=== PATIENT | female | born 1975 | race Caucasian/White ===

== ENCOUNTER 2018-09-28 18:42 | Emergency (ER) | payer OTHER ==
[2018-09-28 18:52] VITALS: RESP 18; TEMP 97.8
[2018-09-28] MEDS ORDERED: SODIUM CHLORIDE 0.9% 1,000 ML IV STA (19:48)
[2018-09-28] MEDS ORDERED: MORPHINE SULFATE 4 MG/ML SYRINGE IVP STA (19:49)
[2018-09-28] MEDS ORDERED: ONDANSETRON 4 MG/2 ML VIAL IVP STA (19:49)
[2018-09-28] MEDS ORDERED: diphenhydrAMINE 50 MG/ML 1 ML VIAL IVP STA (19:49)
--- NOTE | 2018-09-28 19:54 | ED ---
Headache HPI - General Chief Complaint: Headache Stated Complaint: headache Time Seen by Provider: 09/28/18 19:48 Source: RN notes reviewed, old records reviewed Mode of arrival: ambulatory Limitations: no limitations - History of Present Illness Initial Comments: This is a 43-year-old female the ER for evaluation. Patient presents with 2 weeks of headache. Headache. [place] with no nausea no vomiting, no neck pain. No fevers. No neurological complaint. No prior history of similar headache. She states last 2 weeks no real modifying factors, headache appears to be intermittent throbbing MD Complaint: headache -: week(s) (2) Onset Description: sudden, gradual Severity: mild Quality: aching, throbbing Worsens With: none Associated Symptoms: other (None) Other Symptoms: other (None) Treatments Prior to Arrival: none - Related Data Home Medications Medication Instructions Recorded Confirmed Bifidobacterium Infantis [Align] 4 mg PO DAILY 09/28/18 09/28/18 Omeprazole 40 mg PO DAILY 09/28/18 09/28/18 Allergies Allergy/AdvReac Type Severity Reaction Status Date / Time alcohol Allergy Unknown Verified 09/28/18 20:17 codeine Allergy Unknown Verified 09/28/18 20:17 latex Allergy Unknown Verified 09/28/18 20:17 Penicillins Allergy Unknown Verified 09/28/18 20:17 Review of Systems ROS Statement: Those systems with pertinent positive or pertinent negative responses have been documented in the HPI. ROS Other: All systems not noted in ROS Statement are negative. Past Medical History Past Medical History: GERD/Reflux History of Any Multi-Drug Resistant Organisms: None Reported Past Surgical History: Cholecystectomy, Hernia Repair Past Psychological History: No Psychological Hx Reported Smoking Status: Never smoker Past Alcohol Use History: None Reported Past Drug Use History: None Reported General Exam Limitations: no limitations General appearance: alert, in no apparent distress Head exam: Present: atraumatic, normocephalic, normal inspection Eye exam: Present: normal appearance, PERRL, EOMI. Absent: scleral icterus, conjunctival injection, periorbital swelling ENT exam: Present: normal exam, mucous membranes moist Neck exam: Present: normal inspection. Absent: tenderness, meningismus, lymphadenopathy Respiratory exam: Present: normal lung sounds bilaterally. Absent: respiratory distress, wheezes, rales, rhonchi, stridor Cardiovascular Exam: Present: regular rate, normal rhythm, normal heart sounds. Absent: systolic murmur, diastolic murmur, rubs, gallop, clicks GI/Abdominal exam: Present: soft, normal bowel sounds. Absent: distended, tenderness, guarding, rebound, rigid Extremities exam: Present: normal inspection, full ROM, normal capillary refill. Absent: tenderness, pedal edema, joint swelling, calf tenderness Back exam: Present: normal inspection Neurological exam: Present: alert, oriented X3, CN II-XII intact Psychiatric exam: Present: normal affect, normal mood Skin exam: Present: warm, dry, intact, normal color. Absent: rash Course Vital Signs 09/28/18 09/28/18 09/28/18 18:48 21:51 22:00 Temperature 97.8 F Pulse Rate 74 76 64 Respiratory 18 18 Rate Blood Pressure 116/75 116/81 O2 Sat by Pulse 98 99 100 Oximetry - Reevaluation(s) Reevaluation #1: 09/28/18 22:31 Medical records reviewed Reevaluation #2: 09/28/18 22:31 Headaches resolved Medical Decision Making - Medical Decision Making 43 female the ER with nonspecific headache. Patient's headache is improved. CT brain is negative for acute disease. Lab values normal. Patient can be discharged home - Lab Data Result diagrams: 09/28/18 20:31 09/28/18 20:31 Lab Results 09/28/18 09/28/18 09/28/18 Range/Units 20:31 20:31 20:31 WBC 9.3 (3.8-10.6) k/uL RBC 4.49 (3.80-5.40) m/uL Hgb 13.3 (11.4-16.0) gm/dL Hct 38.6 (34.0-46.0) % MCV 85.9 (80.0-100.0) fL MCH 29.6 (25.0-35.0) pg MCHC 34.4 (31.0-37.0) g/dL RDW 13.4 (11.5-15.5) % Plt Count 248 (150-450) k/uL Neutrophils % 62 % Lymphocytes % 30 % Monocytes % 5 % Eosinophils % 2 % Basophils % 0 % Neutrophils # 5.7 (1.3-7.7) k/uL Lymphocytes # 2.8 (1.0-4.8) k/uL Monocytes # 0.5 (0-1.0) k/uL Eosinophils # 0.2 (0-0.7) k/uL Basophils # 0.0 (0-0.2) k/uL PT (9.0-12.0) sec INR (<1.2) APTT (22.0-30.0) sec Sodium 138 (137-145) mmol/L Potassium 3.7 (3.5-5.1) mmol/L Chloride 104 (98-107) mmol/L Carbon Dioxide 25 (22-30) mmol/L Anion Gap 9 mmol/L BUN 12 (7-17) mg/dL Creatinine 0.71 (0.52-1.04) mg/dL Est GFR (CKD-EPI)AfAm >90 (>60 ml/min/1.73 sqM) Est GFR (CKD-EPI)NonAf >90 (>60 ml/min/1.73 sqM) Glucose 90 (74-99) mg/dL Plasma Lactic Acid Nixon 1.2 (0.7-2.0) mmol/L Calcium 9.2 (8.4-10.2) mg/dL Phosphorus 3.8 (2.5-4.5) mg/dL Magnesium 2.0 (1.6-2.3) mg/dL Total Bilirubin 0.2 (0.2-1.3) mg/dL AST 28 (14-36) U/L ALT 10 (9-52) U/L Alkaline Phosphatase 48 (38-126) U/L Creatine Kinase 122 (30-135) U/L Troponin I (0.000-0.034) ng/mL Total Protein 7.0 (6.3-8.2) g/dL Albumin 4.3 (3.5-5.0) g/dL 09/28/18 09/28/18 Range/Units 20:31 20:31 WBC (3.8-10.6) k/uL RBC (3.80-5.40) m/uL Hgb (11.4-16.0) gm/dL Hct (34.0-46.0) % MCV (80.0-100.0) fL MCH (25.0-35.0) pg MCHC (31.0-37.0) g/dL RDW (11.5-15.5) % Plt Count (150-450) k/uL Neutrophils % % Lymphocytes % % Monocytes % % Eosinophils % % Basophils % % Neutrophils # (1.3-7.7) k/uL Lymphocytes # (1.0-4.8) k/uL Monocytes # (0-1.0) k/uL Eosinophils # (0-0.7) k/uL Basophils # (0-0.2) k/uL PT 10.3 (9.0-12.0) sec INR 1.0 (<1.2) APTT 24.8 (22.0-30.0) sec Sodium (137-145) mmol/L Potassium (3.5-5.1) mmol/L Chloride (98-107) mmol/L Carbon Dioxide (22-30) mmol/L Anion Gap mmol/L BUN (7-17) mg/dL Creatinine (0.52-1.04) mg/dL Est GFR (CKD-EPI)AfAm (>60 ml/min/1.73 sqM) Est GFR (CKD-EPI)NonAf (>60 ml/min/1.73 sqM) Glucose (74-99) mg/dL Plasma Lactic Acid Nixon (0.7-2.0) mmol/L Calcium (8.4-10.2) mg/dL Phosphorus (2.5-4.5) mg/dL Magnesium (1.6-2.3) mg/dL Total Bilirubin (0.2-1.3) mg/dL AST (14-36) U/L ALT (9-52) U/L Alkaline Phosphatase (38-126) U/L Creatine Kinase (30-135) U/L Troponin I <0.012 (0.000-0.034) ng/mL Total Protein (6.3-8.2) g/dL Albumin (3.5-5.0) g/dL - EKG Data -: EKG Interpreted by Me (EKG shows sinus rhythm rate of 60, TX 180, QRS 70, QTc 446) - Radiology Data Radiology results: report reviewed (CT brain CTA had not negative for acute disease), image reviewed Disposition Clinical Impression: Headache Disposition: HOME SELF-CARE Condition: Good Instructions (If sedation given, give patient instructions): Acute Headache (ED) Is patient prescribed a controlled substance at d/c from ED?: No Referrals: Amanda Lindsay MD [Primary Care Provider] - 1-2 days
[2018-09-28 20:53] LABS: Basophils % (A) 0 %; Eosinophils # (A) 0.2 k/uL (0-0.7); Eosinophils % (A) 2 %; HCT 38.6 % (34.0-46.0); HGB 13.3 gm/dL (11.4-16.0); Lymphocytes # (A) 2.8 k/uL (1.0-4.8); Lymphocytes % (A) 30 %; MCH 29.6 pg (25.0-35.0); MCHC 34.4 g/dL (31.0-37.0); MCV 85.9 fL (80.0-100.0); Mean Platelet Volume 8.6; Monocytes # (A) 0.5 k/uL (0-1.0); Monocytes % (A) 5 %; Neutrophils # (A) 5.7 k/uL (1.3-7.7); Neutrophils % (A) 62 %; Platelet Count 248 k/uL (150-450); RBC 4.49 m/uL (3.80-5.40); RDW 13.4 % (11.5-15.5); WBC 9.3 k/uL (3.8-10.6)
[2018-09-28 20:58] LABS: Partial Thromboplastin Time 24.8 sec (22.0-30.0); Prothrombin Time 10.3 sec (9.0-12.0)
[2018-09-28 21:00] LABS: ALT 10 U/L (9-52); AST 28 U/L (14-36); African American GFR (CKD) >90 (>60 ml/min/1.73 sqM); Albumin 4.3 g/dL (3.5-5.0); Alkaline Phosphatase 48 U/L (38-126); Anion Gap 9 mmol/L; Blood Urea Nitrogen 12 mg/dL (7-17); Calcium 9.2 mg/dL (8.4-10.2); Carbon Dioxide 25 mmol/L (22-30); Chloride 104 mmol/L (98-107); Creatine Kinase 122 U/L (30-135); Glucose 90 mg/dL (74-99); Phosphorus 3.8 mg/dL (2.5-4.5); Potassium 3.7 mmol/L (3.5-5.1); Sodium 138 mmol/L (137-145); Total Bilirubin 0.2 mg/dL (0.2-1.3)
--- NOTE | 2018-09-28 22:09 | CT ---
EXAMINATION: CT brain wo con DATE AND TIME: 09/28/2018 9:47 PM CLINICAL INDICATION: PHH; Pain TECHNIQUE: Standard departmental protocol.; 1088.9; COMPARISON: None. FINDINGS: The calvarium is intact. There is no intracranial hemorrhage. There is no intracranial mass or mass effect. No definite new intra-axial or extra-axial attenuation defect. The paranasal sinuses, middle ear cavities, and mastoid sinus air cells are clear. The orbits are unremarkable. IMPRESSION: NO ACUTE PROCESS.
--- NOTE | 2018-09-28 22:24 | CT ---
EXAMINATION TYPE: CT angio head neck with contrast and with 3-D reconstruction renderings DATE OF EXAM: 09/28/2018 HISTORY: headache and neck pain COMPARISON: CT brain without contrast 09/28/2018 at 9:[address] DLP: 524.3 mGycm. Automated Exposure Control for Dose Reduction was Utilized. TECHNIQUE: CTA scan of the neck is performed with IV Contrast, patient injected with 50cc mL of Isov ue 370, axial images are obtained, coronal and sagittal reformatted images are reviewed. Three-D rusty nstructed images are created on an independent workstation and reviewed. FINDINGS: The bilateral carotid arterial systems are negative for stenosis or aneurysm or dissection. The bilateral vertebral arterial systems are negative for stenosis or aneurysm or dissection. The intracranial anterior and posterior circulation is widely patent and without aneurysm or focal st ricture. The dural venous sinuses are patent. The venous structures throughout the neck are patent. No incidental skeletal or soft tissue findings. No incidental intracranial or spinal findings. IMPRESSION: No significant abnormality is seen.
[2018-09-28 22:27] VITALS: BP 116/81; PULSE 64
[2018-09-28] MEDS ORDERED: KETOROLAC 30 MG/ML 1 ML VIAL IVP STA (22:30)
== END 2018-09-28 22:58 | disposition home or self-care (01) ==
LOC: EC 18:42
DX: R51 Headache (principal); K21.9 Gastro-esophageal reflux disease without esophagitis; Z79.899 Other long term (current) drug therapy; Z88.0 Allergy status to penicillin; Z91.040 Latex allergy status; Z88.5 Allergy status to narcotic agent; Z91.048 Other nonmedicinal substance allergy status; Z53.29 Procedure and treatment not carried out because of patient's decision for other reasons
CPT/HCPCS: 36415; 93005; 80053; 82550; 83605; 83735; 84100; 84484; 85025; 85610; 85730; 70496; 70450; 70498; 99285; 96374; 96375 ×2; 96361; J2270; J2405; J1885; Q9967

== ENCOUNTER → 2019-08-31 | Day surgery (SDC) | payer OTHER ==
[2019-08-29 15:26] VITALS: BMI 35.8
[~2019-08-31] MED LIST: LACTATED RINGERS 1,000 ML IV SCH; MIDAZOLAM 2 MG/2 ML VIAL ONE; PROPOFOL 10 MG/ML 20 ML VIAL IV ONE
[2019-08-31 08:24] VITALS: RESP 16; TEMP 98
--- NOTE | 2019-08-31 08:56 | P.PCN ---
Date of Procedure: 08/31/19 Procedure(s) Performed: BRIEF HISTORY: Patient is a 44-year-old, pleasant, and scheduled for an upper endoscopy as a part of evaluation of long-standing history of GERD. She has been on Protonix 40 mg twice daily and remains symptomatic. She of prior history of hiatal hernia repair approximately 25 years ago and did well for several years. Because of worsening symptoms he scheduled for an upper endoscopy to rule out complicated reflux disease.. PROCEDURE PERFORMED: Esophagogastroduodenoscopy with biopsy. PREOPERATIVE DIAGNOSIS: Long-standing history of GERD. IV sedation per anesthesia. PROCEDURE: After informed consent was obtained, the patient was brought into the endoscopy unit. IV sedation was administered by Anesthesia under continuous monitoring. Initially the Olympus GIF-140 video endoscope was inserted into the mouth. Esophagus intubated without any difficulty. It was gradually advanced into the stomach and duodenum and carefully examined. The bulb and the second part of the duodenum appeared normal. The scope at this time was withdrawn to the stomach, adequately insufflated with air, and upon careful examination, mucosa of the antrum and mild antral gastritis and biopsies were done from this area. The, body, cardia and the fundus appeared normal. Previous fundoplicat ion noted which appears intact. The scope was then withdrawn into the esophagus. The GE junction was located at 36 cm from the incisors. There was a 3 mm tongues of Sam's appearing mucosa just proximal to the GE junction was biopsied. The rest of the esophagus appeared normal. There were no erosions or ulcerations seen and the patient tolerated the procedure well. IMPRESSION: 1. Mild antral gastritis. 2. 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 RECOMMENDATIONS: The findings of this examination were discussed with the patient as well as a family. She was advised to biopsy results. She will continue with Protonix 40 mg twice daily half hour before breakfast and follow antireflux measures. If the biopsy confirms the presence of Sam's esophagus she can have a repeat upper endoscopy in 2-3 years.
[2019-08-31 09:16] VITALS: BP 108/71; PULSE 71
== END ==
LOC: ORWHC2ENDO 07:44
PROVIDERS: ATTEND Internal Medicine Gastroenterology
DX: K29.50 Unspecified chronic gastritis without bleeding (principal); K21.9 Gastro-esophageal reflux disease without esophagitis; K22.70 Barrett's esophagus without dysplasia; J45.909 Unspecified asthma, uncomplicated; Z79.899 Other long term (current) drug therapy; Z98.890 Other specified postprocedural states; Z88.5 Allergy status to narcotic agent; Z88.0 Allergy status to penicillin
CPT/HCPCS: 81025; 88305; 43239; J2250; J2704

== ENCOUNTER 2020-03-31 14:39 | Emergency (ER) | payer OTHER ==
[2020-03-31 14:44] VITALS: PULSE 66; TEMP 97.8
[2020-03-31] MEDS ORDERED: LIDOCAINE 5% PATCH TOPICAL STA (15:03)
[2020-03-31] MEDS ORDERED: KETOROLAC 15 MG/ML 1 ML VIAL IVP STA (15:03)
[2020-03-31] MEDS ORDERED: CYCLOBENZAPRINE 10 MG TAB PO STA (15:04)
--- NOTE | 2020-03-31 15:18 | ED ---
Back Pain HPI - General Chief Complaint: Back Pain/Injury Stated Complaint: back injury Time Seen by Provider: 03/31/20 14:50 Source: patient Limitations: no limitations - History of Present Illness Initial Comments: 44-year-old female presenting to the emergency department with a chief complaint of back pain. Patient reports chronic history of back pain in the lumbosacral region. However, today she was trying to wash her dog in the shower and he pulled her while on the leash. Patient states she was holding a leash with the right arm and the dog "yanked" her. Patient reports most of the pain is located localized to the right latissimus region. Patient reports the pain is exacerbated with any pulling motion of the right arm. Reports the pain is also exacerbated with left and right rotation. Does report taking ibuprofen with no significant improve his symptoms. States the incident occurred about 3 hours prior to arrival. She denies any vertebral tenderness in the cervical or thoracic region. No saddle anesthesia, urinary retention with overflow incontinence or bowel incontinence. No anesthesia or weakness in the lower extremities. - Related Data Home Medications Medication Instructions Recorded Confirmed Pantoprazole [Protonix] 40 cap PO DAILY 08/31/19 03/31/20 Cider Vinegar [Apple Cider Vinegar] 300 mg PO DAILY 03/31/20 03/31/20 Diclofenac Sodium Gel [Voltaren 2 gm TOPICAL DAILY PRN 03/31/20 03/31/20 Gel] Ibuprofen [Motrin Ib] 800 mg PO Q8H PRN 03/31/20 03/31/20 L.acidoph,Paracasei, B.lactis 1 cap PO DAILY 03/31/20 03/31/20 [Probiotic] Previous Rx's Medication Instructions Recorded Cyclobenzaprine [Flexeril] 5 mg PO TID PRN #15 tablet 03/31/20 Allergies Allergy/AdvReac Type Severity Reaction Status Date / Time alcohol Allergy Unknown Verified 03/31/20 16:08 codeine Allergy Unknown Verified 03/31/20 16:08 latex Allergy Unknown Verified 03/31/20 16:08 Penicillins Allergy Unknown Verified 03/31/20 16:08 Review of Systems ROS Statement: Those systems with pertinent positive or pertinent negative responses have been documented in the HPI. ROS Other: All systems not noted in ROS Statement are negative. Past Medical History Past Medical History: Asthma, GERD/Reflux, Skin Disorder Additional Past Medical History / Comment(s): eczema History of Any Multi-Drug Resistant Organisms: None Reported Past Surgical History: Cholecystectomy, Hernia Repair, Uterine Ablation Additional Past Surgical History / Comment(s): D&C Past Anesthesia/Blood Transfusion Reactions: Previous Problems w/ Anesthesia Additional Past Anesthesia/Blood Transfusion Reaction / Comment(s): hard to wake up from anesthesia Past Psychological History: No Psychological Hx Reported Smoking Status: Never smoker Past Alcohol Use History: None Reported Past Drug Use History: None Reported - Past Family History Mother Family Medical History: No Reported History General Exam Limitations: no limitations General appearance: alert, in no apparent distress, obese Head exam: Present: atraumatic, normocephalic, normal inspection Eye exam: Present: normal appearance, PERRL, EOMI Pupils: Present: normal accommodation ENT exam: Present: normal exam, normal oropharynx, mucous membranes moist Neck exam: Present: normal inspection, full ROM. Absent: tenderness Respiratory exam: Present: normal lung sounds bilaterally. Absent: respiratory distress, wheezes, rales Cardiovascular Exam: Present: regular rate, normal rhythm, normal heart sounds GI/Abdominal exam: Present: soft. Absent: distended, tenderness, guarding, rebound Extremities exam: Present: normal inspection, normal capillary refill. Absent: full ROM (Pain in the right latissimus region with pulling motion of the right arm.), pedal edema, joint swelling, calf tenderness Back exam: Present: normal inspection, full ROM, tenderness (Localized tenderness over the right latissimus dorsi muscle. No vertebral tenderness.), muscle spasm. Absent: CVA tenderness (R), CVA tenderness (L), paraspinal tenderness, vertebral tenderness Neurological exam: Present: alert, oriented X3 Psychiatric exam: Present: normal affect, normal mood Skin exam: Present: warm, dry, intact, normal color Course Vital Signs 03/31/20 03/31/20 14:42 16:23 Temperature 97.8 F Pulse Rate 66 66 Respiratory 20 18 Rate Blood Pressure 140/70 110/68 O2 Sat by Pulse 100 100 Oximetry Medical Decision Making - Medical Decision Making 44-year-old female presenting to the emergency department with a chief complaint of back pain. On physical examination, the pain is localized to the right latissimus dorsi muscle is history exacerbated with any pulling motion on the right arm. I suspect this is secondary to strain of the right latissimus dorsi. No suspicion for cauda equina. Patient was given a Lidoderm patch, Toradol and Flexeril. On reevaluation patient reports improvement in symptoms she continues to have muscle spasms in the region. Patient was given 4 mg of Va lium. On reevaluation, she does report significant improvement in symptoms. She will be discharged with Flexeril. Advised to alternate between Tylenol and Motrin for pain control. Advised to apply warm compresses and massage region. Return parameters discussed the patient was understanding and agreeable. Case discussed physician. Disposition Clinical Impression: Back strain, Back pain Disposition: HOME SELF-CARE Condition: Stable Instructions (If sedation given, give patient instructions): Acute Low Back Pain (ED) Additional Instructions: Take prescribed medication as directed. Rest. Alternate between Tylenol and Motrin for pain control. Return to emergency department if symptoms worsen. Prescriptions: Cyclobenzaprine [Flexeril] 5 mg PO TID PRN #15 tablet PRN Reason: Muscle Spasm Is patient prescribed a controlled substance at d/c from ED?: No Referrals: Amanda Lindsay MD [Primary Care Provider] - 1-2 days Time of Disposition: 16:06
[2020-03-31] MEDS ORDERED: DIAZEPAM 5 MG/ML 2 ML INJ IM STA (15:54)
[2020-03-31 16:24] VITALS: BP 110/68; RESP 18
== END 2020-03-31 16:24 | disposition home or self-care (01) ==
LOC: EC 14:39
DX: S39.012A Strain of muscle, fascia and tendon of lower back, initial encounter (principal); K21.9 Gastro-esophageal reflux disease without esophagitis; Z79.899 Other long term (current) drug therapy; Z88.0 Allergy status to penicillin; Z88.5 Allergy status to narcotic agent; Z91.040 Latex allergy status; Z91.048 Other nonmedicinal substance allergy status; Z90.49 Acquired absence of other specified parts of digestive tract; X58.XXXA Exposure to other specified factors, initial encounter
CPT/HCPCS: 99283; 96374; 96372; J3360; J1885

== ENCOUNTER 2020-03-31 22:22 | Emergency (ER) | payer OTHER ==
[2020-03-31] MEDS ORDERED: MORPHINE SULFATE 4 MG/ML SYRINGE IM STA (23:02)
[2020-03-31] MEDS ORDERED: ORPHENADRINE 30 MG/ML 2 ML VIAL IM STA (23:02)
[2020-03-31 23:33] LABS: Appearance,Urine Clear (Clear); Bilirubin,Urine Negative (Negative); Blood,Urine Negative (Negative); Color,Urine Yellow; Glucose,Urine (UA) Negative (Negative); Ketones,Urine Negative (Negative); Leukocyte Esterase,Urine Negative (Negative); Nitrite,Urine Negative (Negative); Protein,Urine Negative (Negative); Specific Gravity,Urine 1.024 (1.001-1.035); Urobilinogen,Urine <2.0 mg/dL (<2.0)
[2020-03-31] MEDS ORDERED: traMADol 50 MG STARTER PACK 3 TAB BTL PO STA (23:33)
[2020-03-31] MEDS ORDERED: KETOROLAC 15 MG/ML 1 ML VIAL IM STA (23:33)
--- NOTE | 2020-04-01 01:08 | ED ---
Back Pain HPI - General Chief Complaint: Back Pain/Injury Stated Complaint: Revisit Back Pain Time Seen by Provider: 03/31/20 22:53 Source: patient Limitations: no limitations - History of Present Illness Initial Comments: 44-year-old female patient presents to the emergency department today for evaluation of right flank pain. Patient states she has been having this pain on and off for the last year. Patient states that she was walking her dog yesterday and he jerked her forward causing the area to spasm. Patient states that pain that significant increases with movement. Denies radiation down her legs. Denies saddle anesthesia or loss of bowel or bladder control. States she has been taking, Motrin at home without relief. She was seen and evaluated in the emergency department earlier today and was given muscle relaxers. States these are not helping. Denies any fever or chills. Denies nausea or vomiting. Denies any hematuria, dysuria, urinary frequency, urinary urgency. States she has no evaluation in the past including x-rays, CT, and kidney evaluation, everything was negative. Patient denies any recent rash, cough, shortness of breath, chest pain, abdominal pain, diarrhea, constipation, numbness, tingling, dizziness, weakness, headache, visual changes, or any other complaints. - Related Data Home Medications Medication Instructions Recorded Confirmed Pantoprazole [Protonix] 40 cap PO DAILY 08/31/19 03/31/20 Cider Vinegar [Apple Cider Vinegar] 300 mg PO DAILY 03/31/20 03/31/20 Diclofenac Sodium Gel [Voltaren 2 gm TOPICAL DAILY PRN 03/31/20 03/31/20 Gel] Ibuprofen [Motrin Ib] 800 mg PO Q8H PRN 03/31/20 03/31/20 L.acidoph,Paracasei, B.lactis 1 cap PO DAILY 03/31/20 03/31/20 [Probiotic] Previous Rx's Medication Instructions Recorded Cyclobenzaprine [Flexeril] 5 mg PO TID PRN #15 tablet 03/31/20 Ketorolac [Toradol] 10 mg PO Q6HR #12 tab 04/01/20 Orphenadrine [Norflex] 100 mg PO Q12H #20 tablet.er 04/01/20 traMADol HCL [Ultram] 50 mg PO Q4HR PRN 3 Days #18 tab 04/01/20 Allergies Allergy/AdvReac Type Severity Reaction Status Date / Time alcohol Allergy Unknown Verified 03/31/20 22:45 codeine Allergy Unknown Verified 03/31/20 22:45 latex Allergy Unknown Verified 03/31/20 22:45 Penicillins Allergy Unknown Verified 03/31/20 22:45 Review of Systems ROS Statement: Those systems with pertinent positive or pertinent negative responses have been documented in the HPI. ROS Other: All systems not noted in ROS Statement are negative. Past Medical History Past Medical History: Asthma, GERD/Reflux, Skin Disorder Additional Past Medical History / Comment(s): eczema History of Any Multi-Drug Resistant Organisms: None Reported Past Surgical History: Cholecystectomy, Hernia Repair, Uterine Ablation Additional Past Surgical History / Comment(s): D&C Past Anesthesia/Blood Transfusion Reactions: Previous Problems w/ Anesthesia Additional Past Anesthesia/Blood Transfusion Reaction / Comment(s): hard to wake up from anesthesia Past Psychological History: No Psychological Hx Reported Smoking Status: Never smoker Past Alcohol Use History: None Reported Past Drug Use History: None Reported - Past Family History Mother Family Medical History: No Reported History General Exam Limitations: no limitations General appearance: alert, in no apparent distress, other (This is a well- developed, well-nourished adult female patient in no acute distress. Vital signs upon presentation are temperature 98.0F, pulse 78, respirations 19, blood pressure 107/72, pulse ox 98% on room air.) Eye exam: Present: normal appearance, PERRL, EOMI. Absent: scleral icterus, conjunctival injection, periorbital swelling ENT exam: Present: normal exam, normal oropharynx, mucous membranes moist Respiratory exam: Present: normal lung sounds bilaterally. Absent: respiratory distress, wheezes, rales, rhonchi, stridor Cardiovascular Exam: Present: regular rate, normal rhythm, normal heart sounds. Absent: systolic murmur, diastolic murmur, rubs, gallop, clicks GI/Abdominal exam: Present: soft, normal bowel sounds. Absent: distended, tenderness, guarding, rebound, rigid Back exam: Present: other (Right flank tenderness over the latissimus dorsi muscle.). Absent: vertebral tenderness Neurological exam: Present: alert, oriented X3, CN II-XII intact Psychiatric exam: Present: normal affect, normal mood Skin exam: Present: warm, dry, intact, normal color. Absent: rash Course Vital Signs 03/31/20 04/01/20 22:40 01:35 Temperature 98 F 97.9 F Pulse Rate 78 82 Respiratory 19 18 Rate Blood Pressure 107/72 112/81 O2 Sat by Pulse 98 99 Oximetry Medical Decision Making - Medical Decision Making 44-year-old female patient presents to the emergency department today for evaluation of right flank pain tenderness over the right latissimus dorsi muscle. No vertebral tenderness. She is neurologically intact with no focal deficits. Urinalysis is negative for evidence for blood or signs of infection. Patient has had this pain on and off for the last year has had previous workup without findings. Patient's pain seems to be mechanical in nature as it does worsen significantly with movement or straining of the area. We did give Ultram, Toradol, and Norflex here. Upon reevaluation patient is resting currently embedded states her symptoms are improved. She'll be discharged home with a prescription for Norflex and Toradol. She is given starter pack for Ultram up her prescription for Ultram. She is instructed to follow-up with her primary care physician for recheck in 1-2 days. Return parameters were discussed in detail. She verbalizes understanding and agrees with this plan. - Lab Data Lab Results 03/31/20 Range/Units 23:22 Urine Color Yellow Urine Appearance Clear (Clear) Urine pH 6.0 (5.0-8.0) Ur Specific [place] 1.024 (1.001-1.035) Urine Protein Negative (Negative) Urine Glucose (UA) Negative (Negative) Urine Ketones Negative (Negative) Urine Blood Negative (Negative) Urine Nitrite Negative (Negative) Urine Bilirubin Negative (Negative) Urine Urobilinogen <2.0 (<2.0) mg/dL Ur Leukocyte Esterase Negative (Negative) Disposition Clinical Impression: Muscle strain, Back pain Disposition: HOME SELF-CARE Condition: Good Instructions (If sedation given, give patient instructions): Muscle Strain (ED), Back Pain (ED) Prescriptions: Orphenadrine [Norflex] 100 mg PO Q12H #20 tablet.er Ketorolac [Toradol] 10 mg PO Q6HR #12 tab traMADol HCL [Ultram] 50 mg PO Q4HR PRN 3 Days #18 tab PRN Reason: Pain Is patient prescribed a controlled substance at d/c from ED?: No Referrals: Amanda Lindsay MD [Primary Care Provider] - 1-2 days Time of Disposition: 01:08
[2020-04-01 01:40] VITALS: BP 112/81; PULSE 82; RESP 18; TEMP 97.9
== END 2020-04-01 01:35 | disposition home or self-care (01) ==
LOC: EC 22:22
DX: S39.012A Strain of muscle, fascia and tendon of lower back, initial encounter (principal); K21.9 Gastro-esophageal reflux disease without esophagitis; Z79.899 Other long term (current) drug therapy; Z88.0 Allergy status to penicillin; Z88.5 Allergy status to narcotic agent; Z91.040 Latex allergy status; Z91.048 Other nonmedicinal substance allergy status; Z90.49 Acquired absence of other specified parts of digestive tract; X50.1XXA Overexertion from prolonged static or awkward postures, initial encounter; Y93.K1 Activity, walking an animal
CPT/HCPCS: 99283 ×3; 96372 ×4; 96374; 81003; J2360; J3360; J1885 ×2

== ENCOUNTER 2021-08-10 23:21 | Emergency (ER) | payer OTHER ==
[2021-08-10 23:33] VITALS: BP 124/84; PULSE 86; RESP 18; TEMP 97.9
[2021-08-11 00:03] LABS: Appearance,Urine Clear (Clear); Bacteria,Urine Occasional /hpf; Bilirubin,Urine Negative (Negative); Blood,Urine Large (Negative); Color,Urine Light Yellow; Glucose,Urine (UA) Negative (Negative); Ketones,Urine Negative (Negative); Leukocyte Esterase,Urine Negative (Negative); Mucus,Urine Rare /hpf; Nitrite,Urine Negative (Negative); PH, Urine 6.5 (5.0-8.0); Protein,Urine Negative (Negative); RBC,Urine 6 /hpf (0-5); Specific Gravity,Urine 1.005 (1.001-1.035); Squamous Epithelial Cell,Urine 1 /hpf (0-4); Urobilinogen,Urine <2.0 mg/dL (<2.0); WBC,Urine 1 /hpf (0-5)
--- NOTE | 2021-08-11 00:06 | XR ---
EXAMINATION TYPE: XR KUB DATE OF EXAM: 08/10/2021 COMPARISON: NONE HISTORY: Abdominal pain TECHNIQUE: 2 views FINDINGS: Bowel gas pattern is normal. No sign of intestinal obstruction or pneumoperitoneum. Fecal p attern is normal. No evidence of a mass. There are no pathologic calcifications over the kidneys. IMPRESSION: Nonacute abdomen.
--- NOTE | 2021-08-11 00:24 | ED ---
Abdominal Pain HPI - General Chief Complaint: Abdominal Pain Stated Complaint: abd pain Time Seen by Provider: 08/11/21 00:17 Source: patient, RN notes reviewed, old records reviewed Mode of arrival: ambulatory Limitations: no limitations - History of Present Illness Initial Comments: This is a 46-year-old female to the emergency department for evaluation she complains of upper area of abdominal pain epigastric dull pain with nausea no vomiting. Patient states she does have history of gallbladder removal and appendicitis for appendix removal. Otherwise no specific prior surgeries. No diarrhea. Mild nausea no vomiting. No travel history or sick contacts. MD Complaint: abdominal pain -: hour(s) Location: epigastric Radiation: epigastric Migration to: epigastric Severity: moderate Severity scale (1-10): 4 Quality: cramping, aching Consistency: intermittent Improves With: nothing Worsens With: nothing Associated Symptoms: nausea Treatments Prior to Arrival: other (none) - Related Data Home Medications Medication Instructions Recorded Confirmed Pantoprazole [Protonix] 40 cap PO DAILY 08/31/19 03/31/20 Cider Vinegar [Apple Cider Vinegar] 300 mg PO DAILY 03/31/20 03/31/20 Diclofenac Sodium Gel [Voltaren 2 gm TOPICAL DAILY PRN 03/31/20 03/31/20 Gel] Ibuprofen [Motrin Ib] 800 mg PO Q8H PRN 03/31/20 03/31/20 L.acidoph,Paracasei, B.lactis 1 cap PO DAILY 03/31/20 03/31/20 [Probiotic] Previous Rx's Medication Instructions Recorded Cyclobenzaprine [Flexeril] 5 mg PO TID PRN #15 tablet 03/31/20 Ketorolac [Toradol] 10 mg PO Q6HR #12 tab 04/01/20 Orphenadrine [Norflex] 100 mg PO Q12H #20 tablet.er 04/01/20 traMADol HCL [Ultram] 50 mg PO Q4HR PRN 3 Days #18 tab 04/01/20 Allergies Allergy/AdvReac Type Severity Reaction Status Date / Time alcohol Allergy Unknown Verified 08/10/21 23:33 codeine Allergy Unknown Verified 08/10/21 23:33 latex Allergy Unknown Verified 08/10/21 23:33 Penicillins Allergy Unknown Verified 08/10/21 23:33 Review of Systems ROS Statement: Those systems with pertinent positive or pertinent negative responses have been documented in the HPI. ROS Other: All systems not noted in ROS Statement are negative. Past Medical History Past Medical History: Asthma, GERD/Reflux, Skin Disorder Additional Past Medical History / Comment(s): eczema History of Any Multi-Drug Resistant Organisms: None Reported Past Surgical History: Cholecystectomy, Hernia Repair, Uterine Ablation Additional Past Surgical History / Comment(s): D&C Past Anesthesia/Blood Transfusion Reactions: Previous Problems w/ Anesthesia Additional Past Anesthesia/Blood Transfusion Reaction / Comment(s): hard to wake up from anesthesia Past Psychological History: No Psychological Hx Reported Smoking Status: Never smoker Past Alcohol Use History: None Reported Past Drug Use History: None Reported - Past Family History Mother Family Medical History: No Reported History General Exam Limitations: no limitations General appearance: alert, in no apparent distress, anxious Head exam: Present: atraumatic, normocephalic, normal inspection Eye exam: Present: normal appearance, PERRL, EOMI. Absent: scleral icterus, conjunctival injection, periorbital swelling ENT exam: Present: normal exam, mucous membranes moist Neck exam: Present: normal inspection. Absent: tenderness, meningismus, lymphadenopathy Respiratory exam: Present: normal lung sounds bilaterally. Absent: respiratory distress, wheezes, rales, rhonchi, stridor Cardiovascular Exam: Present: regular rate, normal rhythm, normal heart sounds. Absent: systolic murmur, diastolic murmur, rubs, gallop, clicks GI/Abdominal exam: Present: soft, tenderness, guarding, normal bowel sounds. Absent: distended, rebound, rigid Extremities exam: Present: normal inspection, full ROM, normal capillary refill. Absent: tenderness, pedal edema, joint swelling, calf tenderness Back exam: Present: normal inspection Neurological exam: Present: alert, oriented X3, CN II-XII intact Psychiatric exam: Present: normal affect, normal mood Skin exam: Present: warm, dry, intact, normal color. Absent: rash Course Vital Signs 08/10/21 23:29 Temperature 97.9 F Pulse Rate 86 Respiratory 18 Rate Blood Pressure 124/84 O2 Sat by Pulse 98 Oximetry - Reevaluation(s) Reevaluation #1: 08/11/21 Medical record is reviewed Reevaluation #2: 08/11/21 Patient informed of results and questions answered 08/11/21 Patient symptoms are improving Reevaluation #3: 08/11/21 Patient feels good for discharge home Medical Decision Making - Medical Decision Making 46 female to the emergency department for evaluation coming in for abdominal pain, mild low-grade pancreatitis nondrinker history of pain go bladder is removed. Patient will continue follow-up on an outpatient basis for GI, computed tomography scan is otherwise negative here in the emergency department, he is controlled and she can be discharged - Lab Data Result diagrams: 08/11/21 00:23 08/11/21 00:23 Lab Results 08/10/21 08/11/21 08/11/21 Range/Units 23:46 00:23 00:23 WBC 8.5 (3.8-10.6) k/uL RBC 4.52 (3.80-5.40) m/uL Hgb 13.1 (11.4-16.0) gm/dL Hct 40.3 (34.0-46.0) % MCV 89.1 (80.0-100.0) fL MCH 29.1 (25.0-35.0) pg MCHC 32.6 (31.0-37.0) g/dL RDW 12.8 (11.5-15.5) % Plt Count 235 (150-450) k/uL MPV 9.2 Neutrophils % 56 % Lymphocytes % 34 % Monocytes % 6 % Eosinophils % 2 % Basophils % 1 % Neutrophils # 4.7 (1.3-7.7) k/uL Lymphocytes # 2.9 (1.0-4.8) k/uL Monocytes # 0.5 (0-1.0) k/uL Eosinophils # 0.2 (0-0.7) k/uL Basophils # 0.1 (0-0.2) k/uL Sodium 137 (137-145) mmol/L Potassium 3.9 (3.5-5.1) mmol/L Chloride 101 (98-107) mmol/L Carbon Dioxide 29 (22-30) mmol/L Anion Gap 7 mmol/L BUN 9 (7-17) mg/dL Creatinine 0.84 (0.52-1.04) mg/dL Est GFR (CKD-EPI)AfAm >90 (>60 ml/min/1.73 sqM) Est GFR (CKD-EPI)NonAf 83 (>60 ml/min/1.73 sqM) Glucose 102 H (74-99) mg/dL Plasma Lactic Acid Nixon (0.7-2.0) mmol/L Calcium 9.1 (8.4-10.2) mg/dL Total Bilirubin 0.4 (0.2-1.3) mg/dL AST 44 H (14-36) U/L ALT 45 H (4-34) U/L Alkaline Phosphatase 50 (38-126) U/L Total Protein 7.4 (6.3-8.2) g/dL Albumin 4.4 (3.5-5.0) g/dL Amylase 81 (30-110) U/L Lipase 430 H (23-300) U/L Urine Color Light Yellow Urine Appearance Clear (Clear) Urine pH 6.5 (5.0-8.0) Ur Specific Umpire 1.005 (1.001-1.035) Urine Protein Negative (Negative) Urine Glucose (UA) Negative (Negative) Urine Ketones Negative (Negative) Urine Blood Large H (Negative) Urine Nitrite Negative (Negative) Urine Bilirubin Negative (Negative) Urine Urobilinogen <2.0 (<2.0) mg/dL Ur Leukocyte Esterase Negative (Negative) Urine RBC 6 H (0-5) /hpf Urine WBC 1 (0-5) /hpf Ur Squamous Epith Cells 1 (0-4) /hpf Urine Bacteria Occasional H (None) /hpf Urine Mucus Rare H (None) /hpf 08/11/21 Range/Units 00:23 WBC (3.8-10.6) k/uL RBC (3.80-5.40) m/uL Hgb (11.4-16.0) gm/dL Hct (34.0-46.0) % MCV (80.0-100.0) fL MCH (25.0-35.0) pg MCHC (31.0-37.0) g/dL RDW (11.5-15.5) % Plt Count (150-450) k/uL MPV Neutrophils % % Lymphocytes % % Monocytes % % Eosinophils % % Basophils % % Neutrophils # (1.3-7.7) k/uL Lymphocytes # (1.0-4.8) k/uL Monocytes # (0-1.0) k/uL Eosinophils # (0-0.7) k/uL Basophils # (0-0.2) k/uL Sodium (137-145) mmol/L Potassium (3.5-5.1) mmol/L Chloride (98-107) mmol/L Carbon Dioxide (22-30) mmol/L Anion Gap mmol/L BUN (7-17) mg/dL Creatinine (0.52-1.04) mg/dL Est GFR (CKD-EPI)AfAm (>60 ml/min/1.73 sqM) Est GFR (CKD-EPI)NonAf (>60 ml/min/1.73 sqM) Glucose (74-99) mg/dL Plasma Lactic Acid Nixon 0.9 (0.7-2.0) mmol/L Calcium (8.4-10.2) mg/dL Total Bilirubin (0.2-1.3) mg/dL AST (14-36) U/L ALT (4-34) U/L Alkaline Phosphatase (38-126) U/L Total Protein (6.3-8.2) g/dL Albumin (3.5-5.0) g/dL Amylase (30-110) U/L Lipase (23-300) U/L Urine Color Urine Appearance (Clear) Urine pH (5.0-8.0) Ur Specific Umpire (1.001-1.035) Urine Protein (Negative) Urine Glucose (UA) (Negative) Urine Ketones (Negative) Urine Blood (Negative) Urine Nitrite (Negative) Urine Bilirubin (Negative) Urine Urobilinogen (<2.0) mg/dL Ur Leukocyte Esterase (Negative) Urine RBC (0-5) /hpf Urine WBC (0-5) /hpf Ur Squamous Epith Cells (0-4) /hpf Urine Bacteria (None) /hpf Urine Mucus (None) /hpf - Radiology Data Radiology results: report reviewed (CT of the abdomen and pelvis is negative for acute disease), image reviewed Disposition Clinical Impression: Abdominal pain, Pancreatitis Disposition: HOME SELF-CARE Condition: Good Instructions (If sedation given, give patient instructions): Pancreatitis (ED), Abdominal Pain (ED) Is patient prescribed a controlled substance at d/c from ED?: No Referrals: Amanda Lindsay MD [Primary Care Provider] - 1-2 days Time of Disposition: 01:30
[2021-08-11 01:03] LABS: ALT 45 U/L (4-34); AST 44 U/L (14-36); African American GFR (CKD) >90 (>60 ml/min/1.73 sqM); Albumin 4.4 g/dL (3.5-5.0); Alkaline Phosphatase 50 U/L (38-126); Amylase 81 U/L (30-110); Anion Gap 7 mmol/L; Blood Urea Nitrogen 9 mg/dL (7-17); Calcium 9.1 mg/dL (8.4-10.2); Carbon Dioxide 29 mmol/L (22-30); Chloride 101 mmol/L (98-107); Glucose 102 mg/dL (74-99); Lipase 430 U/L (23-300); Non-African American GFR(CKD) 83 (>60 ml/min/1.73 sqM); Potassium 3.9 mmol/L (3.5-5.1); Sodium 137 mmol/L (137-145); Total Bilirubin 0.4 mg/dL (0.2-1.3); Total Protein 7.4 g/dL (6.3-8.2)
[2021-08-11 01:12] LABS: Basophils # (A) 0.1 k/uL (0-0.2); Basophils % (A) 1 %; Eosinophils # (A) 0.2 k/uL (0-0.7); Eosinophils % (A) 2 %; HCT 40.3 % (34.0-46.0); HGB 13.1 gm/dL (11.4-16.0); Lymphocytes # (A) 2.9 k/uL (1.0-4.8); Lymphocytes % (A) 34 %; MCH 29.1 pg (25.0-35.0); MCHC 32.6 g/dL (31.0-37.0); MCV 89.1 fL (80.0-100.0); Mean Platelet Volume 9.2; Monocytes # (A) 0.5 k/uL (0-1.0); Monocytes % (A) 6 %; Neutrophils # (A) 4.7 k/uL (1.3-7.7); Neutrophils % (A) 56 %; Platelet Count 235 k/uL (150-450); RBC 4.52 m/uL (3.80-5.40); RDW 12.8 % (11.5-15.5); WBC 8.5 k/uL (3.8-10.6)
--- NOTE | 2021-08-11 01:22 | CT ---
EXAMINATION TYPE: CT abdomen pelvis wo con DATE OF EXAM: 08/11/2021 COMPARISON: None HISTORY: Abd. pain CT DLP: 1117 mGycm Automated exposure control for dose reduction was used. Images obtained from the diaphragm to the floor the pelvis with no contrast. Lung bases are clear. No pleural effusion. Heart size is normal. No pericardial effusion. There are clips from cholecystectomy. Liver is intact. Spleen is intact. There is no evidence of panc reatic mass. Stomach is intact. There are clips at the gastroesophageal junction. There is no adrenal mass. Kidneys of normal size. No hydronephrosis. Ureters are not dilated. There i s no retroperitoneal adenopathy. Bladder distends smoothly. There are a few sigmoid diverticula. No d iverticulitis. The cecum is on the left side of the abdomen. There is short appendix appears normal. No mesenteric edema. No ascites or free air. No bowel obstruction. The lumbar vertebrae have normal alignment. No compression fracture. Posterior elements are intact. H ip joints are intact. Sacroiliac joints appear normal. Uterus is retroverted. No pelvic mass. IMPRESSION: Negative CT scan abdomen and pelvis. Normal appendix. Previous surgery.
[2021-08-11] MEDS ORDERED: ONDANSETRON 4 MG ODT STARTER PACK 2 TAB BTL PO STA (01:31)
[2021-08-11] MEDS ORDERED: traMADol 50 MG STARTER PACK 3 TAB BTL PO STA (01:32)
== END 2021-08-11 01:42 | disposition home or self-care (01) ==
LOC: EC 23:21
DX: K85.90 Acute pancreatitis without necrosis or infection, unspecified (principal); K21.9 Gastro-esophageal reflux disease without esophagitis; J45.909 Unspecified asthma, uncomplicated; Z79.899 Other long term (current) drug therapy; Z88.0 Allergy status to penicillin; Z90.49 Acquired absence of other specified parts of digestive tract
CPT/HCPCS: 36415; 80053; 82150; 83605; 83690; 85025; 81001; 74018; 74176; 99284; S0119

== ENCOUNTER 2021-11-27 08:48 | Emergency (ER) | payer OTHER ==
[2021-11-27 08:53] VITALS: RESP 16; TEMP 97.8
[2021-11-27] MEDS ORDERED: DIPH,PERTUS(ACELL)TETVAC-LF 0.5 ML VIAL IM ONE (09:05)
--- NOTE | 2021-11-27 09:06 | ED ---
Fall HPI - General Chief Complaint: Fall Stated Complaint: fell down 12 steps, head injury Time Seen by Provider: 11/27/21 08:56 Source: patient, RN notes reviewed Mode of arrival: ambulatory Limitations: no limitations - History of Present Illness Initial Comments: 46-year-old female presents emergency Department with chief complaint slip and fall. Patient states she was coming down her stairs in which she states her 12 stairs has green LG on the step read she states she slipped falling striking her head on a brick. Patient does have a noted laceration the left side of her head, mild bleeding. She does complain of mild discomfort no loss conscious. No blurred vision. Patient does have some soreness to her left side has no severe complaints of left arm or left leg pain. Patient is able to ambulate. - Related Data Home Medications Medication Instructions Recorded Confirmed Pantoprazole [Protonix] 40 cap PO DAILY 08/31/19 03/31/20 Cider Vinegar [Apple Cider Vinegar] 300 mg PO DAILY 03/31/20 03/31/20 Diclofenac Sodium Gel [Voltaren 2 gm TOPICAL DAILY PRN 03/31/20 03/31/20 Gel] Ibuprofen [Motrin Ib] 800 mg PO Q8H PRN 03/31/20 03/31/20 L.acidoph,Paracasei, B.lactis 1 cap PO DAILY 03/31/20 03/31/20 [Probiotic] Previous Rx's Medication Instructions Recorded Cyclobenzaprine [Flexeril] 5 mg PO TID PRN #15 tablet 03/31/20 Ketorolac [Toradol] 10 mg PO Q6HR #12 tab 04/01/20 Orphenadrine [Norflex] 100 mg PO Q12H #20 tablet.er 04/01/20 traMADol HCL [Ultram] 50 mg PO Q4HR PRN 3 Days #18 tab 04/01/20 Allergies Allergy/AdvReac Type Severity Reaction Status Date / Time alcohol Allergy Unknown Verified 11/27/21 08:53 codeine Allergy Unknown Verified 11/27/21 08:53 latex Allergy Unknown Verified 11/27/21 08:53 Penicillins Allergy Unknown Verified 11/27/21 08:53 Review of Systems ROS Statement: Those systems with pertinent positive or pertinent negative responses have been documented in the HPI. ROS Other: All systems not noted in ROS Statement are negative. Past Medical History Past Medical History: Asthma, GERD/Reflux, Skin Disorder Additional Past Medical History / Comment(s): eczema History of Any Multi-Drug Resistant Organisms: None Reported Past Surgical History: Cholecystectomy, Hernia Repair, Uterine Ablation Additional Past Surgical History / Comment(s): D&C Past Anesthesia/Blood Transfusion Reactions: Previous Problems w/ Anesthesia Additional Past Anesthesia/Blood Transfusion Reaction / Comment(s): hard to wake up from anesthesia Past Psychological History: No Psychological Hx Reported Smoking Status: Never smoker Past Alcohol Use History: None Reported Past Drug Use History: None Reported - Past Family History Mother Family Medical History: No Reported History General Exam Limitations: no limitations General appearance: alert, in no apparent distress Head exam: Present: atraumatic, normocephalic. Absent: normal inspection (Small abrasion, puncture wound on the left parietal region) Eye exam: Present: normal appearance, PERRL, EOMI. Absent: scleral icterus, conjunctival injection, periorbital swelling ENT exam: Present: normal exam, normal oropharynx, mucous membranes moist Neck exam: Present: normal inspection, full ROM. Absent: tenderness, meningismus, lymphadenopathy Respiratory exam: Present: normal lung sounds bilaterally. Absent: respiratory distress, wheezes, rales, rhonchi, stridor Cardiovascular Exam: Present: regular rate, normal rhythm, normal heart sounds. Absent: systolic murmur, diastolic murmur, rubs, gallop, clicks Extremities exam: Present: normal inspection, full ROM, normal capillary refill. Absent: tenderness, pedal edema, joint swelling, calf tenderness Neurological exam: Present: alert, oriented X3, CN II-XII intact, reflexes normal. Absent: motor sensory deficit Course Vital Signs 11/27/21 08:50 Temperature 97.8 F Pulse Rate 90 Respiratory 16 Rate Blood Pressure 135/83 O2 Sat by Pulse 96 Oximetry Medical Decision Making - Medical Decision Making CT of the brain, C-spine unremarkable. Patient has superficial abrasion, laceration of the scalp with no need for closure. Tetanus is updated. Patient will be discharged in stable condition return parameters were discussed. Disposition Clinical Impression: Fall, Scalp laceration, Head contusion Disposition: HOME SELF-CARE Condition: Stable Instructions (If sedation given, give patient instructions): Head Injury (ED) Additional Instructions: Please return to the Emergency Department if symptoms worsen or any other chinyere rns. Is patient prescribed a controlled substance at d/c from ED?: No Referrals: Amanda Lindsay MD [Primary Care Provider] - 1-2 days Time of Disposition: 09:53
--- NOTE | 2021-11-27 09:51 | CT ---
EXAMINATION TYPE: CT brain wilbertine wo con DATE OF EXAM: 11/27/2021 COMPARISON: 09/28/2018 HISTORY: Fell down 12 steps, laceration top of head and ear pain CT DLP: 1643 mGycm, Automated exposure control for dose reduction was used. CONTRAST: None CT of the brain is performed utilizing 3 mm thick sections through the posterior fossa and 3 mm thick sections through the remaining calvarium. Study is performed within 24 hours of arrival to the hospital. No abnormal hyperdensity is present to suggest an acute intracranial hemorrhage. No mass lesion is evident. No acute infarcts are evident. Ventricles and sulci are appropriate for the patient age. No acute fractures evident. Paranasal sinuses and mastoid air cells within the [id number] are clear. IMPRESSIONS: 1. No acute intracranial process. CT cervical spine. COMPARISON: None CT of the cervical spine is performed in the axial plane at 2 mm thick sections. Reconstructed image s in the coronal, and sagittal plane are reviewed on the computer. No acute fractures are evident. Vertebral body alignment is normal. Disc heights are preserved. Vertebral body heights are preserved. No spinal canal stenosis is evident. No neural foraminal stenosis is evident. IMPRESSIONS: 1. No acute osseous abnormality cervical spine.
[2021-11-27 10:06] VITALS: BP 142/85; PULSE 85
== END 2021-11-27 10:06 | disposition home or self-care (01) ==
LOC: EC 08:48
DX: S00.93XA Contusion of unspecified part of head, initial encounter (principal); J45.909 Unspecified asthma, uncomplicated; K21.9 Gastro-esophageal reflux disease without esophagitis; Z79.83 Long term (current) use of bisphosphonates; W10.8XXA Fall (on) (from) other stairs and steps, initial encounter; Z88.5 Allergy status to narcotic agent; Z91.048 Other nonmedicinal substance allergy status; Z88.0 Allergy status to penicillin; Z23 Encounter for immunization
CPT/HCPCS: 70450; 72125; 90471; 90715; 99284

== ENCOUNTER 2021-11-28 22:11 | Emergency (ER) | payer OTHER ==
[2021-11-28 23:28] VITALS: BP 125/65; PULSE 76; RESP 20; TEMP 96.8
--- NOTE | 2021-11-29 00:41 | ED ---
Head Injury HPI - General Chief complaint: Head Injury Stated complaint: Fall, Nausea Source: patient Mode of arrival: ambulatory Limitations: no limitations - History of Present Illness Initial comments: Patient is a 46-year-old female presenting with chief complaint of headache. Patient fell down the stairs yesterday, she was seen in our ER, CT showed no acute intracranial process or fracture of the cervical spine. Patient is not on any blood thinners and did not lose consciousness at the time of the event. Patient states that she has been continuing to experience a headache since this visit today as well as some nausea. Patient denies any vision or hearing changes, vomiting, dizziness, neck pain or stiffness, chest pain, shortness of breath, numbness, tingling, weakness, seizure. - Related Data Home Medications Medication Instructions Recorded Confirmed Pantoprazole [Protonix] 40 cap PO DAILY 08/31/19 03/31/20 Cider Vinegar [Apple Cider Vinegar] 300 mg PO DAILY 03/31/20 03/31/20 Diclofenac Sodium Gel [Voltaren 2 gm TOPICAL DAILY PRN 03/31/20 03/31/20 Gel] Ibuprofen [Motrin Ib] 800 mg PO Q8H PRN 03/31/20 03/31/20 L.acidoph,Paracasei, B.lactis 1 cap PO DAILY 03/31/20 03/31/20 [Probiotic] Previous Rx's Medication Instructions Recorded Cyclobenzaprine [Flexeril] 5 mg PO TID PRN #15 tablet 03/31/20 Ketorolac [Toradol] 10 mg PO Q6HR #12 tab 04/01/20 Orphenadrine [Norflex] 100 mg PO Q12H #20 tablet.er 04/01/20 traMADol HCL [Ultram] 50 mg PO Q4HR PRN 3 Days #18 tab 04/01/20 Allergies/Adverse reactions: Allergies Allergy/AdvReac Type Severity Reaction Status Date / Time alcohol Allergy Unknown Verified 11/28/21 23:29 codeine Allergy Unknown Verified 11/28/21 23:29 latex Allergy Unknown Verified 11/28/21 23:29 Penicillins Allergy Unknown Verified 11/28/21 23:29 Review of Systems ROS Statement: Those systems with pertinent positive or pertinent negative responses have been documented in the HPI. ROS Other: All systems not noted in ROS Statement are negative. Past Medical History Past Medical History: Asthma, GERD/Reflux, Skin Disorder Additional Past Medical History / Comment(s): eczema History of Any Multi-Drug Resistant Organisms: None Reported Past Surgical History: Cholecystectomy, Hernia Repair, Uterine Ablation Additional Past Surgical History / Comment(s): D&C Past Anesthesia/Blood Transfusion Reactions: Previous Problems w/ Anesthesia Additional Past Anesthesia/Blood Transfusion Reaction / Comment(s): hard to wake up from anesthesia Past Psychological History: No Psychological Hx Reported Smoking Status: Never smoker Past Alcohol Use History: None Reported Past Drug Use History: None Reported - Past Family History Mother Family Medical History: No Reported History General Exam Limitations: no limitations General appearance: alert, in no apparent distress Head exam: Present: atraumatic, normocephalic, normal inspection Eye exam: Present: normal appearance, PERRL, EOMI. Absent: scleral icterus, conjunctival injection, periorbital swelling Pupils: Present: normal accommodation Neck exam: Present: normal inspection, full ROM. Absent: tenderness Respiratory exam: Present: normal lung sounds bilaterally. Absent: respiratory distress, wheezes, rales, rhonchi, stridor Cardiovascular Exam: Present: regular rate, normal rhythm, normal heart sounds. Absent: systolic murmur, diastolic murmur, rubs, gallop, clicks Neurological exam: Present: alert, oriented X3, CN II-XII intact Expanded Patient oriented to: Present: person, place, time Speech: Present: fluid speech Cranial nerves: EOM's Intact: Normal, Facial Sensation: Normal Sensory exam: Upper Extremity Light Touch: Normal, Lower Extremity Light Touch: Normal Motor strength exam: RUE: 5, LUE: 5, RLE: 5, LLE: 5 Eye Response: (4) open spontaneously Motor Response: (6) obeys commands Verbal Response: (5) oriented [place] Total: 15 Psychiatric exam: Present: normal affect, normal mood Skin exam: Present: warm, dry, intact, normal color. Absent: rash Course Vital Signs 11/28/21 23:25 Temperature 96.8 F L Pulse Rate 76 Respiratory 20 Rate Blood Pressure 125/65 O2 Sat by Pulse 97 Oximetry Medical Decision Making - Medical Decision Making Patient is a 46-year-old female presenting with chief complaint of headache and nausea. Patient fell down the stairs yesterday resulting in head injury, CT in our ER yesterday showed no acute process. Patient is continuing to feel a headache today and felt some nausea. I evaluated the patient in the triage ocampo. On examination there are no focal neurological deficits, patient has full strength and sensation of the extremities, extraocular motions are intact, PERRLA, neck has full range of motion. Patient's symptoms appear consistent with concussion. After discussing these findings with my attending and the appropriate plan for discharge with outpatient follow-up, patient had left AGAINST MEDICAL ADVICE. Patient should follow-up with your PCP and report back to ER with any new or worsening symptoms. Disposition Clinical Impression: Head injury Disposition: Left Against Medical Advice Condition: Fair Instructions (If sedation given, give patient instructions): Concussion (ED), Post Concussion Syndrome (ED), Head Injury (ED) Additional Instructions: Follow-up with PCP. Report back to ER if any new or worsening symptoms. Is patient prescribed a controlled substance at d/c from ED?: No Referrals: Amanda Lindsay MD [Primary Care Provider] - 1-2 days Time of Disposition: 00:41
== END 2021-11-29 00:48 | disposition left against medical advice (07) ==
LOC: EC 22:11
DX: S09.90XA Unspecified injury of head, initial encounter (principal); J45.909 Unspecified asthma, uncomplicated; K21.9 Gastro-esophageal reflux disease without esophagitis; Z91.048 Other nonmedicinal substance allergy status; Z88.5 Allergy status to narcotic agent; Z91.040 Latex allergy status; Z88.0 Allergy status to penicillin; Z79.899 Other long term (current) drug therapy; W10.9XXA Fall (on) (from) unspecified stairs and steps, initial encounter; Z53.29 Procedure and treatment not carried out because of patient's decision for other reasons
CPT/HCPCS: 99283

== ENCOUNTER → 2021-12-16 | Outpatient (CLI) | payer OTHER ==
--- NOTE | 2021-12-16 10:56 | US ---
EXAMINATION TYPE: US venous doppler duplex UE LT DATE OF EXAM: 12/16/2021 COMPARISON: NONE CLINICAL HISTORY: R22.32 SWELLING LT FOREARM,Z91.81 POST FALL. Patient states she fell x 3 weeks ago. No redness. No swelling. No hx DVT. SIDE PERFORMED: Left Grayscale, color doppler, spectral doppler imaging performed of the deep veins of the left upper extr emity. The left internal jugular, subclavian, axillary, brachial, basilic, cephalic, radial, and ulna r veins demonstrate normal flow, compressibility and vascular waveforms. Left Arm: Negative for DVT IMPRESSION: No ultrasound evidence for deep venous thrombosis of the left upper extremity.
== END | disposition home or self-care (01) ==
LOC: RADUSWWP 10:10
PROVIDERS: ATTEND Family Medicine
DX: R22.32 Localized swelling, mass and lump, left upper limb (principal); Z91.81 History of falling; Z83.2 Family history of diseases of the blood and blood-forming organs and certain disorders involving the immune mechanism

== ENCOUNTER 2022-07-29 20:23 | Emergency (ER) | payer OTHER ==
[2022-07-29 20:44] VITALS: BP 118/61; PULSE 86; RESP 16; TEMP 97.9
[2022-07-29 21:19] LABS: Basophils % (A) 0 %; Eosinophils # (A) 0.1 k/uL (0-0.7); Eosinophils % (A) 2 %; HCT 38.2 % (34.0-46.0); Lymphocytes % (A) 32 %; MCH 29.4 pg (25.0-35.0); MCHC 34.1 g/dL (31.0-37.0); MCV 86.2 fL (80.0-100.0); Mean Platelet Volume 9.8; Monocytes # (A) 0.5 k/uL (0-1.0); Monocytes % (A) 5 %; Neutrophils # (A) 5.5 k/uL (1.3-7.7); Neutrophils % (A) 59 %; Platelet Count 244 k/uL (150-450); RBC 4.43 m/uL (3.80-5.40); RDW 13.4 % (11.5-15.5); WBC 9.4 k/uL (3.8-10.6)
[2022-07-29 21:40] LABS: Albumin 4.5 g/dL (3.5-5.0); Calcium 9.4 mg/dL (8.4-10.2); Potassium 3.7 mmol/L (3.5-5.1); Total Bilirubin 0.3 mg/dL (0.2-1.3); Total Protein 7.6 g/dL (6.3-8.2)
--- NOTE | 2022-07-29 21:42 | XR ---
EXAMINATION TYPE: XR KUB DATE OF EXAM: 07/29/2022 COMPARISON: None INDICATION: Abdomen pain TECHNIQUE: Single view abdomen frontal upright view FINDINGS: There is a normal bowel gas pattern. Periventricular branches within the descending colon. No suspici ous air-fluid levels or differential air-fluid levels are present. No free air is evident. Psoas margins are normal. No organomegaly is present. IMPRESSION: 1. Unremarkable Abdomen
--- NOTE | 2022-07-29 22:01 | ED ---
Abdominal Pain HPI - General Chief Complaint: Abdominal Pain Stated Complaint: CONSTIPATED-ABD PAIN Time Seen by Provider: 07/29/22 21:49 Source: patient Mode of arrival: ambulatory Limitations: no limitations - History of Present Illness Initial Comments: This is a 39-year-old female presenting with chief complaint of lower abdominal pain. Patient has history of constipation and she notes increased pressure to the rectum. It has been several days since her last bowel movement. No vomiting. No fevers or chills. No dysuria or hematuria. No chest pain or difficulty breathing. - Related Data Home Medications Medication Instructions Recorded Confirmed Pantoprazole [Protonix] 40 cap PO DAILY 08/31/19 03/31/20 Cider Vinegar [Apple Cider Vinegar] 300 mg PO DAILY 03/31/20 03/31/20 Diclofenac Sodium Gel [Voltaren 2 gm TOPICAL DAILY PRN 03/31/20 03/31/20 Gel] Ibuprofen [Motrin Ib] 800 mg PO Q8H PRN 03/31/20 03/31/20 L.acidoph,Paracasei, B.lactis 1 cap PO DAILY 03/31/20 03/31/20 [Probiotic] Previous Rx's Medication Instructions Recorded Cyclobenzaprine [Flexeril] 5 mg PO TID PRN #15 tablet 03/31/20 Ketorolac [Toradol] 10 mg PO Q6HR #12 tab 04/01/20 Orphenadrine [Norflex] 100 mg PO Q12H #20 tablet.er 04/01/20 traMADol HCL [Ultram] 50 mg PO Q4HR PRN 3 Days #18 tab 04/01/20 Allergies Allergy/AdvReac Type Severity Reaction Status Date / Time alcohol Allergy Unknown Verified 11/28/21 23:29 codeine Allergy Unknown Verified 11/28/21 23:29 latex Allergy Unknown Verified 11/28/21 23:29 Penicillins Allergy Unknown Verified 11/28/21 23:29 Review of Systems ROS Statement: Those systems with pertinent positive or pertinent negative responses have been documented in the HPI. ROS Other: All systems not noted in ROS Statement are negative. Past Medical History Past Medical History: Asthma, GERD/Reflux, Skin Disorder Additional Past Medical History / Comment(s): eczema History of Any Multi-Drug Resistant Organisms: None Reported Past Surgical History: Cholecystectomy, Hernia Repair, Uterine Ablation Additional Past Surgical History / Comment(s): D&C Past Anesthesia/Blood Transfusion Reactions: Previous Problems w/ Anesthesia Additional Past Anesthesia/Blood Transfusion Reaction / Comment(s): hard to wake up from anesthesia Past Psychological History: No Psychological Hx Reported Smoking Status: Never smoker Past Alcohol Use History: None Reported Past Drug Use History: None Reported - Past Family History Mother Family Medical History: No Reported History General Exam Limitations: no limitations General appearance: alert, in no apparent distress Head exam: Present: atraumatic, normocephalic, normal inspection Eye exam: Present: normal appearance, EOMI. Absent: scleral icterus, periorbital swelling Neck exam: Present: normal inspection, full ROM Respiratory exam: Present: normal lung sounds bilaterally. Absent: respiratory distress, wheezes, rales, rhonchi, stridor Cardiovascular Exam: Present: regular rate, normal rhythm, normal heart sounds. Absent: systolic murmur, diastolic murmur, rubs, gallop, clicks GI/Abdominal exam: Present: soft. Absent: distended, tenderness, guarding, rebound, rigid Neurological exam: Present: alert, oriented X3, CN II-XII intact Psychiatric exam: Present: normal affect, normal mood Skin exam: Present: warm, dry, intact, normal color. Absent: rash Course Vital Signs 07/29/22 20:41 Temperature 97.9 F Pulse Rate 86 Respiratory 16 Rate Blood Pressure 118/61 O2 Sat by Pulse 96 Oximetry Medical Decision Making - Medical Decision Making Was pt. sent in by a medical professional or institution (, PA, CHIEF II DISPATCHER, urgent care, hospital, or senior living...) When possible be specific @ -No Did you speak to anyone other than the patient for history (EMS, parent, family, police, friend...)? What history was obtained from this source @ -No Did you review nursing and triage notes (agree or disagree)? Why? @ -I reviewed and agree with nursing and triage notes Were old charts reviewed (outside hosp., previous admission, EMS record, old EKG, old radiological studies, urgent care reports/EKG's, senior living records)? Report findings @ -No old charts were reviewed Differential Diagnosis (chest pain, altered mental status, abdominal pain women, abdominal pain men, vaginal bleeding, weakness, fever, dyspnea, syncope, headache, dizziness, GI bleed, back pain, seizure, CVA, palpatations, mental health, musculoskeletal)? @ -MDM Differential Abdominal Pain Women: Appendicitis, Cholecystitis, diverticulosis, ischemic bowel, pancreatitis, hepatitis, UTI, gastroenteritis, AAA, incarcerated hernia, bowel obstruction, constipation, inflammatory bowel, hepatitis, peptic ulcer disease, splenic infarction, perforated viscus, vulvitis, ovarian torsion, PID, kidney stone, placenta abruption... This is not meant to be an all-inclusive list EKG interpreted by me (3pts min.). @ -As above X-rays interpreted by me (1pt min.). @ -KUB x-ray shows nonacute abdomen. On my independent interpretation there appears to be some degree of constipation. CT interpreted by me (1pt min.). @ -None done U/S interpreted by me (1pt. min.). @ -None done What testing was considered but not performed or refused? (CT, X-rays, U/S, labs)? Why? @ -None What meds were considered but not given or refused? Why? @ -None Did you discuss the management of the patient with other professionals (professionals i.e. , PA, CHIEF II DISPATCHER, lab, RT, psych nurse, social media campaign manager, post partum nurse, teacher, administrative officer, case finisher)? Give summary @ -No Was smoking cessation discussed for >3mins.? @ -No Was critical care preformed (if so, how long)? @ -No Were there social determinants of health that impacted care today? How? (Homelessness, low income, unemployed, alcoholism, drug addiction, transportation, low edu. Level, literacy, decrease access to med. care, usp, rehab)? @ -No Was there de-escalation of care discussed even if they declined (Discuss DNR or withdrawal of care, Hospice)? DNR status @ -No What co-morbidities impacted this encounter? (DM, HTN, Smoking, COPD, CAD, Cancer, CVA, ARF, Chemo, Hep., AIDS, mental health diagnosis, sleep apnea, morbid obesity)? @ -None Was patient admitted / discharged? Hospital course, mention meds given and route, prescriptions, significant lab abnormalities, going to OR and other pertinent info. @ -Patient is a 39-year-old female presenting with chief complaint of lower abdominal pain and pressure to the rectum. She has history of constipation and states that this feels similar to previous episodes. Lab work shows no l eukocytosis or anemia. CMP is essentially unremarkable. KUB x-ray shows nonacute abdomen. Patient is educated on these findings. I offered the patient on a monitor, patient states that she would rather be discharged home at this time. I instructed the patient to take xuaa-wio-rlluibh magnesium citrate to help resolve her constipation. She is agreeable with this plan. Follow-up with PCP. Report back to ER with any new or worsening symptoms. Discussed return parameters and answered all questions. Patient conveyed verbal understanding and agreed to the plan. I discussed this case in detail with my attending Dr. Weber Undiagnosed new problem with uncertain prognosis? @ -No Drug Therapy requiring intensive monitoring for toxicity (Heparin, Nitro, Insulin, Cardizem)? @ -No Were any procedures done? @ -No Diagnosis/symptom? @ -Constipation Acute, or Chronic, or Acute on Chronic? @ -Acute Uncomplicated (without systemic symptoms) or Complicated (systemic symptoms)? @ -Uncomplicated Side effects of treatment? @ -No Exacerbation, Progression, or Severe Exacerbation? @ -No Poses a threat to life or bodily function? How? (Chest pain, USA, OR, pneumonia, PE, COPD, DKA, ARF, appy, cholecystitis, CVA, Diverticulitis, Homicidal, Suicidal, threat to staff... and all critical care pts) @ -No - Lab Data Result diagrams: 07/29/22 20:56 07/29/22 20:56 Lab Results 07/29/22 07/29/22 Range/Units 20:56 20:56 WBC 9.4 (3.8-10.6) k/uL RBC 4.43 (3.80-5.40) m/uL Hgb 13.0 (11.4-16.0) gm/dL Hct 38.2 (34.0-46.0) % MCV 86.2 (80.0-100.0) fL MCH 29.4 (25.0-35.0) pg MCHC 34.1 (31.0-37.0) g/dL RDW 13.4 (11.5-15.5) % Plt Count 244 (150-450) k/uL MPV 9.8 Neutrophils % 59 % Lymphocytes % 32 % Monocytes % 5 % Eosinophils % 2 % Basophils % 0 % Neutrophils # 5.5 (1.3-7.7) k/uL Lymphocytes # 3.0 (1.0-4.8) k/uL Monocytes # 0.5 (0-1.0) k/uL Eosinophils # 0.1 (0-0.7) k/uL Basophils # 0.0 (0-0.2) k/uL Sodium 138 (137-145) mmol/L Potassium 3.7 (3.5-5.1) mmol/L Chloride 100 (98-107) mmol/L Carbon Dioxide 28 (22-30) mmol/L Anion Gap 10 mmol/L BUN 10 (7-17) mg/dL Creatinine 0.95 (0.52-1.04) mg/dL Est GFR (CKD-EPI)AfAm 82 (>60 ml/min/1.73 sqM) Est GFR (CKD-EPI)NonAf 72 (>60 ml/min/1.73 sqM) Glucose 96 (74-99) mg/dL Calcium 9.4 (8.4-10.2) mg/dL Total Bilirubin 0.3 (0.2-1.3) mg/dL AST 41 H (14-36) U/L ALT 30 (4-34) U/L Alkaline Phosphatase 59 (38-126) U/L Total Protein 7.6 (6.3-8.2) g/dL Albumin 4.5 (3.5-5.0) g/dL Amylase 65 (30-110) U/L Lipase 306 H (23-300) U/L Disposition Clinical Impression: Constipation Disposition: HOME SELF-CARE Condition: Good Instructions (If sedation given, give patient instructions): Constipation (ED), High Fiber Diet (ED) Additional Instructions: Follow-up with PCP. Report back to ER with any worsening symptoms. Take vfuo-avv-trxdads laxative liquid magnesium citrate per package instructions. Is patient prescribed a controlled substance at d/c from ED?: No Referrals: Amanda Lindsay MD [Primary Care Provider] - 1-2 days Time of Disposition: 22:01
== END 2022-07-29 22:16 | disposition home or self-care (01) ==
LOC: EC 20:23
DX: K59.00 Constipation, unspecified (principal); J45.909 Unspecified asthma, uncomplicated; K21.9 Gastro-esophageal reflux disease without esophagitis; Z79.899 Other long term (current) drug therapy; Z88.0 Allergy status to penicillin; Z91.040 Latex allergy status; Z88.8 Allergy status to other drugs, medicaments and biological substances
CPT/HCPCS: 36415; 74018; 80053; 82150; 83690; 85025; 99284

== ENCOUNTER 2022-09-26 06:43 | Day surgery (SDC) | payer OTHER ==
[2022-09-23 14:38] VITALS: BMI 39.4
[~2022-09-26 06:43] MED LIST changes: +LIDOCAINE 1% (10MG/ML) FOR IV START INTRADERMA PRN; -MIDAZOLAM 2 MG/2 ML VIAL ONE; -PROPOFOL 10 MG/ML 20 ML VIAL IV ONE
[2022-09-26 06:55] VITALS: TEMP 97.2
[2022-09-26] MEDS ORDERED: PROPOFOL 10 MG/ML 20 ML VIAL IV ONE (08:41)
[2022-09-26] MEDS ORDERED: LIDOCAINE 2% INJ 20 MG/ML (2 ML VIAL) ONE (08:41)
--- NOTE | 2022-09-26 08:59 | P.PCN ---
Date of Procedure: 09/26/22 Procedure(s) Performed: Brief history: Patient is a pleasant 47-year-old white female scheduled for an elective upper endoscopy as well as colonoscopy as a part of evaluation of reflux and history of GERD and screening for colon cancer. Procedure performed: Esophagogastroduodenoscopy with biopsy Colonoscopy Preoperative diagnosis: GERD Screening for colon cancer Anesthesia: MAC Procedure: After informed consent was obtained from the patient was brought into the endoscopy unit and IV sedation was administered by anesthesia under continuous monitoring. Initially upper endoscopy was done. The Olympus GF 160 video endoscope was inserted inserted into the mouth and esophagus intubated without any difficulty and was gradually advanced into the stomach and duodenum and carefully examined. The bulb and second part of the duodenum appeared normal. The scope was then withdrawn into the stomach adequately insufflated with air and upon careful examination the antrum had minimal erythema in the prepyloric area which was biopsied. Mucosa of the body, cardia and fundus appeared normal. The scope was then withdrawn into the esophagus. The GE junction was located at 38 cm to the incisors. It appeared regular with no erythema erosions or ulcerations. Rest of the esophagus appeared normal. Patient tolerated the procedure well. At this time the patient continued to remain sedation. Initial digital rectal examination was normal. Olympus CF 160 video colonoscope was then inserted into the rectum and gradually advanced to the cecum without any difficulty. Careful examination was performed as the scope was gradually being withdrawn. The prep was excellent. The cecum, ascending colon, transverse colon, descending colon, sigmoid colon and rectum appeared normal. Retroflexion was performed in the rectum and no lesions were noted. Patient tolerated the procedure well. Impression: 1. Upper endoscopy revealed minimal antral gastritis but no evidence of esophagitis or Sam's esophagus 2. Colonoscopy was within normal limits with no evidence of colorectal neoplasia. Recommendations: Findings of this examination were discussed with the patient as well as her family. She was advised to continue with Nexium 40 mg daily and follow antireflux measures. Recommend repeat screening colonoscopy in 10 years.
[2022-09-26 09:20] VITALS: RESP 14
[2022-09-26 09:35] VITALS: BP 123/81; PULSE 58
== END 2022-09-26 09:43 | disposition home or self-care (01) ==
LOC: ORWHC2ENDO 06:43
PROVIDERS: ATTEND Internal Medicine Gastroenterology
DX: Z12.11 Encounter for screening for malignant neoplasm of colon (principal); K29.50 Unspecified chronic gastritis without bleeding; J45.909 Unspecified asthma, uncomplicated; K21.9 Gastro-esophageal reflux disease without esophagitis; Z79.899 Other long term (current) drug therapy; Z88.0 Allergy status to penicillin
CPT/HCPCS: 81025; 88305; 45378; 43239; J2704; J2001

== ENCOUNTER 2022-12-05 08:23 | Emergency (ER) | payer OTHER ==
[2022-12-05 08:33] VITALS: TEMP 98
--- NOTE | 2022-12-05 08:48 | ED ---
General Adult HPI - General Chief complaint: Extremity Injury, Lower Stated complaint: back pain Time Seen by Provider: 12/05/22 08:29 Source: patient, RN notes reviewed, old records reviewed Mode of arrival: ambulatory Limitations: no limitations - History of Present Illness Initial comments: 47-year-old female presenting with pain in the right buttock, radiating to her lateral calf. Symptoms began approximately 6 days ago. She's been seen at urgent care and her primary care. She had x-rays of the right hip and lumbar spine which she reports were normal. She been started on steroids and had some initial relief with steroids. She continues have radiating pain from the right buttock into the right lateral calf. No bowel or bladder issues. No saddle anesthesia. Patient is ambulatory and states that the pain is improved with standing. - Related Data Home Medications Medication Instructions Recorded Confirmed Ibuprofen [Motrin Ib] 800 mg PO Q8H PRN 03/31/20 09/26/22 Esomeprazole Magnesium 40 mg PO DAILY 09/23/22 09/26/22 polyethylene glycoL 3350 [Miralax] 17 gm PO DAILY PRN 09/23/22 09/23/22 Previous Rx's Medication Instructions Recorded Cyclobenzaprine [Flexeril] 5 mg PO TID PRN #9 tablet 12/05/22 HYDROcodone/APAP 5-325MG [Lorimor 1 tab PO Q6HR PRN #12 tab 12/05/22 5-325] Allergies Allergy/AdvReac Type Severity Reaction Status Date / Time alcohol Allergy Unknown Verified 12/05/22 08:30 codeine Allergy Unknown Verified 12/05/22 08:30 latex Allergy Unknown Verified 12/05/22 08:30 Penicillins Allergy Unknown Verified 12/05/22 08:30 Review of Systems ROS Statement: Those systems with pertinent positive or pertinent negative responses have been documented in the HPI. ROS Other: All systems not noted in ROS Statement are negative. Past Medical History Past Medical History: Asthma, GERD/Reflux, Skin Disorder Additional Past Medical History / Comment(s): eczema, constipation History of Any Multi-Drug Resistant Organisms: None Reported Past Surgical History: Cholecystectomy, Hernia Repair, Uterine Ablation Additional Past Surgical History / Comment(s): D&C Past Anesthesia/Blood Transfusion Reactions: Previous Problems w/ Anesthesia Additional Past Anesthesia/Blood Transfusion Reaction / Comment(s): hard to wake up from anesthesia Past Psychological History: No Psychological Hx Reported Smoking Status: Never smoker Past Alcohol Use History: None Reported Past Drug Use History: None Reported - Past Family History Mother Family Medical History: No Reported History General Exam Limitations: no limitations General appearance: alert, in no apparent distress Head exam: Present: atraumatic, normocephalic Eye exam: Present: normal appearance, PERRL Respiratory exam: Absent: respiratory distress Cardiovascular Exam: Present: regular rate, normal rhythm GI/Abdominal exam: Absent: distended Extremities exam: Present: normal inspection, other (Distal pulses intact). Absent: pedal edema, calf tenderness Back exam: Present: normal inspection. Absent: CVA tenderness (R), CVA tenderness (L), paraspinal tenderness, vertebral tenderness Neurological exam: Present: alert, oriented X3, CN II-XII intact. Absent: motor sensory deficit Psychiatric exam: Present: normal affect, normal mood Skin exam: Present: warm, dry, intact Course Vital Signs 12/05/22 08:28 Temperature 98 F Pulse Rate 97 Respiratory 20 Rate Blood Pressure 131/76 O2 Sat by Pulse 97 Oximetry Medical Decision Making - Medical Decision Making Was pt. sent in by a medical professional or institution (, PA, LENS GRINDER ROUGH, urgent care, hospital, or longterm...) When possible be specific @ -No Did you speak to anyone other than the patient for history (EMS, parent, family, police, friend...)? What history was obtained from this source @ -No Did you review nursing and triage notes (agree or disagree)? Why? @ -I reviewed and agree with nursing and triage notes Were old charts reviewed (outside hosp., previous admission, EMS record, old EKG, old radiological studies, urgent care reports/EKG's, longterm records)? Report findings @ -No old charts were reviewed Differential Diagnosis (chest pain, altered mental status, abdominal pain women, abdominal pain men, vaginal bleeding, weakness, fever, dyspnea, syncope, headache, dizziness, GI bleed, back pain, seizure, CVA, palpatations, mental health, musculoskeletal)? @ Differential Musculoskeletal Muscular strain, contusion, ligament sprain, fracture, arthritis, septic arthritis, bursitis, cellulitis, muscle spasm, nerve compression, DVT, arterial occlusion, herpes zoster, electrolyte abnormality, tumor.... This is not meant to be in all inclusive list EKG interpreted by me (3pts min.). @ -As above X-rays interpreted by me (1pt min.). @ -None done CT interpreted by me (1pt min.). @ -None done U/S interpreted by me (1pt. min.). @ -None done What testing was considered but not performed or refused? (CT, X-rays, U/S, labs)? Why? @ -None What meds were considered but not given or refused? Why? @ -None Did you discuss the management of the patient with other professionals (professionals i.e. DrAníbal, PA, LENS GRINDER ROUGH, lab, RT, psych nurse, social welfare research worker, deck steward, teacher, morals squad police officer, rn case mgr)? Give summary @ -No Was smoking cessation discussed for >3mins.? @ -No Was critical care preformed (if so, how long)? @ -No Were there social determinants of health that impacted care today? How? (Homelessness, low income, unemployed, alcoholism, drug addiction, transpor tation, low edu. Level, literacy, decrease access to med. care, half-way, rehab)? @ -No Was there de-escalation of care discussed even if they declined (Discuss DNR or withdrawal of care, Hospice)? DNR status @ -No What co-morbidities impacted this encounter? (DM, HTN, Smoking, COPD, CAD, Cancer, CVA, ARF, Chemo, Hep., AIDS, mental health diagnosis, sleep apnea, morbid obesity)? @ -None Was patient admitted / discharged? Hospital course, mention meds given and route, prescriptions, significant lab abnormalities, going to OR and other pertinent info. @ -[47-year-old female presenting with 1 week history of right buttock pain radiating into the leg. Patient had outpatient x-rays performed the lumbar spine and right hip. Lumbar spine x-ray revealed moderate degenerative disc disease. Patient has no alarming features on history or physical exam. She's ambulatory. Patient will benefit from orthopedic evaluation. She is currently on 40 mg of prednisone. She will continue this medication as prescribed. She will be prescribed Flexeril and Lorimor for pain and muscle relaxation. Undiagnosed new problem with uncertain prognosis? @ -No Drug Therapy requiring intensive monitoring for toxicity (Heparin, Nitro, Insulin, Cardizem)? @ -No Were any procedures done? @ -No Diagnosis/symptom? @ Sciatica Acute, or Chronic, or Acute on Chronic? @ -[Acute Uncomplicated (without systemic symptoms) or Complicated (systemic symptoms)? @ -default Side effects of treatment? @ -No Exacerbation, Progression, or Severe Exacerbation? @ -No Poses a threat to life or bodily function? How? (Chest pain, USA, PA, pneumonia, PE, COPD, DKA, ARF, appy, cholecystitis, CVA, Diverticulitis, Homicidal, Suicidal, threat to staff... and all critical care pts) @ -[Low risk Disposition Clinical Impression: Sciatica Disposition: HOME SELF-CARE Condition: Fair Instructions (If sedation given, give patient instructions): Sciatica (ED), Lumbar Radiculopathy (ED) Prescriptions: Cyclobenzaprine [Flexeril] 5 mg PO TID PRN #9 tablet PRN Reason: Muscle Spasm HYDROcodone/APAP 5-325MG [Lorimor 5-325] 1 tab PO Q6HR PRN #12 tab PRN Reason: Pain Is patient prescribed a controlled substance at d/c from ED?: No Referrals: Amanda Lindsay MD [Primary Care Provider] - 1-2 days Yaw Santamaria DO [Doctor of Osteopathic Medicine] - 1-2 days Time of Disposition: 08:45
[2022-12-05 09:09] VITALS: BP 135/81; PULSE 88; RESP 18
== END 2022-12-05 09:03 | disposition home or self-care (01) ==
LOC: EC 08:23
DX: M54.41 Lumbago with sciatica, right side (principal); J45.909 Unspecified asthma, uncomplicated; K21.9 Gastro-esophageal reflux disease without esophagitis; Z79.899 Other long term (current) drug therapy; Z88.0 Allergy status to penicillin; Z88.5 Allergy status to narcotic agent; Z91.040 Latex allergy status; Z88.8 Allergy status to other drugs, medicaments and biological substances
CPT/HCPCS: 99283

== ENCOUNTER → 2022-12-11 | Outpatient (CLI) | payer OTHER ==
--- NOTE | 2022-12-12 14:59 | MR ---
EXAMINATION TYPE: MR lumbar spine wo con DATE OF EXAM: 12/11/2022 10:29 PM CLINICAL INDICATION:Female, 47 years old with history of M54.50; PHH, Low back pain, sciatic nerve pa in, right side COMPARISON: 12/05/2022 TECHNIQUE: Multi planar, multi sequence imaging was performed utilizing: T1-weighted, T2-weighted, a nd turbo inversion recovery imaging of the lumbar spine. IV Contrast: (None if empty) FINDINGS: Alignment: The lumbar vertebral bodies have preserved heights and alignment. Cord: The conus medullaris and the distal spinal cord appear unremarkable with regards to their signa l intensity and morphology. Bones/Discs: Mild disc degeneration changes worse at L4-L5 1 with disc space narrowing, and osteophyt es. Intervertebral disc signal is maintained. T12-L1: No evidence of significant spinal canal stenosis or neural foraminal stenosis. L1-L2: No evidence of significant spinal canal stenosis or neural foraminal stenosis. L2-L3: No evidence of significant spinal canal stenosis or neural foraminal stenosis. L3-L4: Disc bulge and facet joint arthropathy result in mild spinal canal and mild bilateral neural f oraminal stenosis. L4-L5: Right foraminal/right central disc extrusion with 9 mm inferior migration. This effaces the fo rming nerve roots at this level and the exiting nerve root at L5-S1. The neural foramen. There is add itionally a central disc protrusion without significant spinal canal stenosis. L5-S1: The disc is rounded posterior morphology without significant spinal canal stenosis. Facet join t arthropathy with mild bilateral neural foraminal stenosis. No significant spinal canal or neural foraminal stenosis in the remainder of the visualized levels. Other findings: None. IMPRESSION: L4-L5 Right foraminal/right central disc herniation with 9 mm inferior migration. This effaces the fo rming nerve roots at this level and the exiting nerve root at L5-S1. Additional L4-L5 central disc pr otrusion without significant spinal canal stenosis.
== END | disposition home or self-care (01) ==
LOC: RADMRIMAIN 21:45
PROVIDERS: ATTEND Orthopaedic Surgery
DX: M47.817 Spondylosis without myelopathy or radiculopathy, lumbosacral region (principal); M51.26 Other intervertebral disc displacement, lumbar region
CPT/HCPCS: 72148

== ENCOUNTER → 2023-01-02 | Outpatient (CLI) | payer OTHER ==
--- NOTE | 2023-01-02 16:37 | XR ---
EXAMINATION TYPE: XR chest 2V DATE OF EXAM: 01/02/2023 COMPARISON: NONE HISTORY: Preoperative clearance. TECHNIQUE: Frontal and lateral views of the chest are obtained. FINDINGS: There is no focal air space opacity, pleural effusion, or pneumothorax seen. The cardiac silhouette size is within normal limits. The osseous structures are intact. IMPRESSION: No acute cardiopulmonary process.
== END | disposition home or self-care (01) ==
LOC: RADXRMAIN 16:05
PROVIDERS: ATTEND Family Medicine
DX: Z01.818 Encounter for other preprocedural examination (principal)
CPT/HCPCS: 71046

== ENCOUNTER → 2023-01-02 | Outpatient (CLI) | payer OTHER ==
[2023-01-03 01:16] LABS: ALT 13 U/L (8-49); AST 23 U/L (13-35); Albumin 4.4 d/dL (3.8-4.9); Albumin/Globulin Ratio 1.83 Ratio (1.60-3.17); Alkaline Phosphatase 60 U/L (41-126); Blood Urea Nitrogen 13.7 mg/dL (9.0-27.0); Calcium 9.3 mg/dL (8.7-10.3); Carbon Dioxide 17.3 mmol/L (21.6-31.8); Chloride 104 mmol/L (96-109); Globulin 2.4 d/dL (1.6-3.3); Glucose 82 mg/dL (70-110); Sodium 140 mmol/L (135-145); Total Bilirubin <0.2 mg/dL (0.3-1.2); Total Protein 6.8 d/dL (6.2-8.2)
[2023-01-03 01:27] LABS: HCT 39.6 % (37.2-50.0); HGB 12.9 d/dL (12.0-17.0); MCH 29.5 pg (27.0-32.0); MCHC 32.6 d/dL (32.0-37.0); MCV 90.4 FL (80.0-97.0); Mean Platelet Volume 12.7 FL (9.5-12.2); NRBC Per 100 WBC 0 X 10*3/uL (0.00-0.01); Platelet Count 292 X 10*3/uL (140-440); RBC 4.38 X 10*6/uL (4.10-5.60); RDW 13.1 % (11.5-14.5); WBC 8.12 X 10*3/uL (4.50-10.00)
[2023-01-03 02:37] LABS: INR 0.97 sec (0.93-1.11); Prothrombin Time 10.5 sec (9.9-11.9)
== END | disposition home or self-care (01) ==
LOC: LABPAT 16:18
PROVIDERS: ATTEND Orthopaedic Surgery
DX: Z01.812 Encounter for preprocedural laboratory examination (principal); Z22.322 Carrier or suspected carrier of Methicillin resistant Staphylococcus aureus; M51.26 Other intervertebral disc displacement, lumbar region; M54.12 Radiculopathy, cervical region
CPT/HCPCS: 80053; 82306; 85027; 85610; 87070

== ENCOUNTER 2023-01-09 12:46 | Day surgery (SDC) | payer OTHER ==
[2023-01-07 10:38] VITALS: BMI 40.4
--- NOTE | 2023-01-09 08:33 | P.HPOR ---
History of Present Illness H&P Date: 01/24/23 .D:Date: 12/24/22 : 08:39am .T:Title: [facility] History and Physical Date of :73 [id number]: NKDA Age: 47 year Height: 5'2" Weight: 221 lbs BMI: 40.42 kg/m2 Occupation: [employer] VAS: 6 DOI: 11/30/2022/ DOS: N/A/ DOT: 4 weeks CHIEF COM PLAINT: Re-check on low back pain / Review MRI lumbar spine results TODAY'S VISIT: Today Ms. Levy presents to the office for a re-check on his low back pain and to review recent MRI of the lumbar spine results. The patient reports experiencing a continued sharp, burning pain throughout the low back that radiates down into the buttocks, right hip, and right lower extremity with a sharp, shooting quality. The patient described her buttock and hip pain as a "tight and heavy pain". The patient notes that her right leg pain is associated with numbness and tingling. She notes that her symptoms worsen after prolonged walking, standing, and sitting. She states that her symptoms have started to make it very difficult for her to complete any of her regular activities of daily living. She reports experiencing severe sleep disturbances related to her ongoing pain and associated symptoms. The patient notes that due to the severity of her current symptoms she has been unable to drive for the last 1 month. The patient has trialed all modalities listed below, with no significant or sustained relief. The patient is currently taking Motrin 800 mg with only mild relief. Otherwise the patient denies any f/c/sob/cp, no bladder or bowel retention/incontinence, no perineal numbness/tingling, and ambulates independently. HPI: Ms. Levy presents to the office on 12/08/2022 for an evaluation of her low back pain. Patient describes a sharp burning lumbar pain with an onset of 11/30/22 when she had awoken and attempted to get out bed. Patient states she felt a "pop" in her low back and had an immediate sharp burning lumbar pain that radiates into the right lower extremity. Patient went to the walk-in clinic and they had provided a steroid injection. Patient states she did not get much r elief. On 12/03/22 she had presented to the [facility] ER due to onset of increased low back pain and numbness and tingling into right lower extremity. Patient states her right foot became numb and she had tightness into her right calf. Patient states it is very painful for her to drive. Otherwise the patient denies any f/c/sob/cp, no bladder or bowel retention/incontinence, no perineal numbness/tingling, and ambulates independently. HISTORY: Imaging: No new xrays taken in office today. Trauma: No Work Related: No Activity Modification: Yes PT: No Home Exercise: Yes; the patient has trialed the physician directed home exercise program without relief of their symptoms. Medications:Yes List: Motrin Alternative Interventions: Chiropractic:No Massage therapy:No R.I.C.E: Yes Brace:No Injections:No RFA:No The patients' past social, medical, family, surgical history, as well as review of systems, have been reviewed. Please refer to the Neurosurgery History and Physical form that has been scanned in to our electronic medical record system. 16 points review of systems completed and as stated in HPI, all other systems reviewed are negative. Social History: Reviewed, see appropriate section of the chart for details. Family History: Reviewed, see appropriate section of the chart for details. Past Medical History: Reviewed, see appropriate section of the chart for details. Current Medications: P1Rx: esomeprazole magnesium 40 mg capsule,delayed release Ref: 0 Rx: Motrin Ref: 0 Rx: Probiotic Ref: 0 Rx: multivitamin tablet Ref: 0 Rx: cyclobenzaprine 10 mg tablet Ref: 0 Rx: gabapentin 100 mg capsule Ref: 0 Rx: HYDROcodone 5 mg-acetaminophen 325 mg tablet Ref: 0 PHYSICAL EXAMINATION: General:Awake, alert, appropriate for age, in no acute distress. HEENT:No unusual neck masses around region of lateral neck triangle, thyroid, supraclavicular groove Heart:Regular rate and rhythm, normal S1, S2 and no murmur/gallop. Lungs:Clear to auscultation bilaterally with no use of accessory muscles. Extremities:Skin warm and dry without acute lesions, coloration, temperature, skin intact, no tenderness or erythema Integument: Hairy patches: ABSENT Dorsal skin dimples:ABSENT Cafe au lait spots:ABSENT Palpation: Please see Pain drawing on Intake sheet for further detail. Midline spinal tenderness:No E6 Cervical Tenderness: No E6 Paralumbar tenderness: No E6 Parathoracic tenderness: No E6 Buttocks tenderness: No E6 Sacroiliac Tenderness: No POSTURAL and MUSCULO-SKELETAL EVALUATION: Coronal Balance: NEUTRAL Recumbent testing: Patient isable to lay flat on back Sagittal Balance:NEUTRAL Shoulder Profile:LEVEL Pelvic Girdle:LEVEL Neck ROM:UNRESTRICTED Lumbar ROM:RESTRICTED Shoulder ROM:Symmetrical Hip ROM:Symmetrical Knee ROM: Symmetrical Hands: Normal appearance, symmetrical Feet:Normal appearance, Symmetrical VASCULAR STATUS : LEFT RIGHT Wrist Pulses INTACT INTACT Pedal Pulses (Dors. pedis & post.tibialis) INTACT INTACT Color NORMAL NORMAL Edema Absent Absent NEUROLOGIC EXAMINATION: Mental Status:Awake and alert, fully oriented, with normal attention, con centration and memory, and fluent, appropriate speech. Cranial Nerves: I: Olfactory not tested. II: Visual acuity normal, no visual field deficit noted with confrontation. III,IV: Normal pupillary reflexes & intact extraocular movements without nystagmus. V,: Intact symmetrical facial sensation. VII: Intact symmetrical facial motor movement VIII: Hearing intact. IX,X: Intact gag, swallow, & normal voice. XI: Sternocleidomastoid, trapezius function intact. XII: Tongue midline with normal movements. L'hermitte's Sign: Negative / absent Spurling'Sign: Absent bilaterally. Cubital percussion test: Absent bilaterally. Crabtree-Tinel sign - Carpal region: Absent bilaterally. Straight Leg Raising: Positive on the right Crossed straight leg raise: negative O8 MOTOR EXAM (0-5/5, N/T Muscle appearance: Symmetrical, without signs of atrophy or dystrophy UPPER EXTREMITY RIGHT LEFT Shoulder Abduction 5/5 5/5 Biceps 5/5 5/5 Triceps 5/5 5/5 Wrist Extension 5/5 5/5 Hand Intrinsic 5/5 5/5 Instrumentation Technologist 5/5 5/5 Hand and finger dexterity intact bilaterally?yes Disdiadochokinesis examination negative bilaterally? yes LOWER EXTREMITY RIGHT LEFT Hip Flexion 5/5 5/5 Knee Extension 5/5 5/5 Knee Flexion 5/5 5/5 Dorsiflexion 4/5 5/5 Plantarflexion 4/5 5/5 EHL 4/5 5/5 FHL 4/5 5/5 Toe heel walk / heel-toe walk intact while maintaining satisfactory balance? No Squatting/straightening w/o assistance to a min of 60 degree knee flexion? No Single leg stance:intact Trendelenburg sign negative bilaterally REFLEXES(0-4/2, NT)Upper ExtremityLower Extremity Right 2 2 Left 2 2 Pathological Reflexes R IGHT LEFT Crabtree's Absent Absent Clonus Absent Absent Babinski Absent Absent Sensory system (0-4, N/T) Test type RU JOVITA RL LL Joint-Position 2 2 2 2 Vibration 2 2 2 2 Pain & LT sense 2 2 2 2 Dermatomal Deficit: None None None None Gait and Functional Evaluation: Ambulatory aids: Independent Romberg's test:Intact bilaterally Steady Gait RADIOGRAPHIC STUDIES: No new x-rays taken in office today. Please see previous note. Xrays reviewed there. MRI of the lumbar spine completed at [facility] on 12/11/2022, reviewed today and demonstrates: Images reviewed with pt L4-5 spondylosis noted with large right sided paracentral disc herniation with fragment extrusion and migration caudally. There is moderate to severe central and right foraminal stenosis noted at this level secondary to heriation. Remaining disc heights maintained. Alignment maintained no fracture No lesions IMPRESSION: It was my pleasure to have seen and examined Melanie. I reviewed the patient's clinical syndrome, physical findings, and imaging studies during the appointment today. It is my impression that the patient has a diagnosis of. 1. L4-5 herniated nucleus pulposus, right 2. Lower extremity radiculopathy, right 3. Lower extremity weakness, right 4. Low back pain I outlined the natural course history without intervention and various interventional options. PLAN: Based on my findings I suggest the following course of action: -I discussed treatment options with the patient, including operative and non- operative options, and they have elected to proceed with the following surgical procedure: L4-5 minimally invasive microdiscectomy, right The indications, risks, benefits, and alternatives to surgery were discussed with the patient and family at length. Specifically (but not limited to) the risks of infection, stiffness, recurrence of symptoms, need for revision surgery, local numbness, neurovascular injury, and blood clots were discussed. The patient's questions were answered. The decision to proceed was made. Consent will be obtained for the procedure. -I have sent prescriptions to the patient's pharmacy today for Flexeril 10 mg, Gabapentin 100 mg, and [place]umbull 5 mg. - Ambulate daily. - Take medications as directed. - Ice and rest for pain and swelling control. Spine Surgery Risk Review Ms. Levy is presenting for evaluation of low back and right lower extremity pain, right lower extremity numbness, tingling, and weakness. It was my pleasure to have seen and examined Ms. Levy. In our visit today we have had a chance to go over subjective complaints, physical examination findings and treatments including the natural course history without intervention and various interventional options. The patients imaging demonstrates: MRI of the lumbar spine completed at [facility] on 12/11/2022, reviewed today and demonstrates: Images reviewed with pt L4-5 spondylosis noted with large right sided paracentral disc herniation with fragment extrusion and migration caudally. There is moderate to severe central and right foraminal stenosis noted at this level secondary to heriation. Remaining disc heights maintained. Alignment maintained no fracture No lesions XRay Lumbar Multiview (AP, Lateral, Flexion, Extension) with AP pelvis; 5 views taken at [facility] on 12/08/22: - Re-reviewed today with the patient. Mild spondylotic and degenerative changes L4-S1 with preserved alignment. Diminished disc height L4-S1. Vertebral body heights are preserved. No acute osseous abnormalities. Pelvis: No fracture or dislocation. Otherwise, unremarkable. CT scancompleted at [facility] from12/05/22 of [facility]: - Re-reviewed today with the patient. IMPRESSION: 1. No lumbar spine fracture or malalignment. 2. Mild degenerative disease at the L3-4 level and moderate degenerative disease at the L4-5 and L5-S1 levels. 3. Small small focal protrusion/herniation of the L4-5 disc to the left of midline. 4. mild facet are arthropathy in the lower lumbar spine. On physical exam, Ms. Levy demonstrates: A continued sharp, burning pain throughout the low back that radiates down into the buttocks, right hip, and right lower extremity with a sharp, shooting quality. The patient described her buttock and hip pain as a "tight and heavy pain". The patient notes that her right leg pain is associated with numbness and tingling. She notes that her symptoms worsen after prolonged walking, standing, and sitting. She states that her symptoms have started to make it very difficult for her to complete any of her regular activities of daily living. She reports experiencing severe sleep disturbances related to her ongoing pain and associated symptoms. The patient notes that due to the severity of her current symptoms she has been unable to drive for the last 1 month. I have explained to the patient that as their condition progresses it will cause further neurological deficits and eventual paralysis. Based on the patients imaging, physical exam, and the rapid progression and disabling nature of their symptoms, at this time I recommend surgery in the form of a: L4-5 minimally invasive microdiscectomy, right. I discussed the risk and benefits of this procedure at length with Ms. Levy. The patient agreed to considered pursuing the procedure abovementioned. Prior to surgery, she should follow up with her PCP (Cardio, ID, IM etc) for clearance. Questions were invited and answered, and the patient wishes to proceed as outlined below. Currently, I am recommendin.L4-5 minimally invasive microdiscectomy, right 2.Follow up with PCP for surgical clearance 3.Review of surgical risks and benefits as well as an educational packet on the proposed surgical procedure. Risks: All surgical procedures come with inherent risks, including those related to positioning, anesthesia, intraoperative findings, and postoperative complications. It is important to understand that surgery does not come with any guarantee of a successful outcome as complications and adverse events are always possible. The patient was given a handout in office today discussing the surgical procedure and risks associated with the intervention, both of which were discussed with the patient. These risks include but are not limited to the following: * Experiencing same, different or even worse symptoms in back, neck, arms, or legs compared to before surgery. Requiring further surgery or other forms of treatment presently or at some time in the future at same or other levels of the intended spine surgery. On an extreme but fortunately relatively rare basis severe complication such as blindness, stroke, heart attack, temporary and/or permanent nerve injury, paralysis, coma, or may occur, sometimes without known explanation. Surgical complications may include but are not limited to risk of infection, fluid accumulation in the surgical dissection site, including a seroma or hematoma, that requires additional surgery, wound drainage, bleeding, new numbness or weakness, vision changes/loss, spinal fluid leakage, non-healing and/or infected incision, headaches, difficulty or inability to swallow, hoarseness, hemopneumothorax, pneumothorax, impotence, retrograde ejaculation, vaginal dryness; injury to nerves, spinal cord, blood vessels, lymphatics or other vital organs (i.e., bowel injury, injury to the great vessels); heterotopic bone formation; complications related to the hardware such as screws, rods, cages including misplaced hardware, device failure, instrumentation at the wrong spine level, hardware fracture/breakage, or hardware loosening; vertebral failure of the spinal column above or below the newly placed hardware; retained surgical instrumentations or devices and the need for further surgery. * Medical risks of the planned spine surgery include but are not limited to generalized Infections to the whole body or local areas outside of the surgical site (sepsis), heart attack, bleeding, anaphylaxis, meningitis, seizure, epilepsy, hearing loss, burn mccormick, laceration of the head or other areas of the body, bruising, hypersensitivity of the skin, bladder over distension; allergic reaction; shoulder injury related to positioning; fat, blood and air clots to other areas of the body like heart, lungs, brain; failure of internal organs such as lungs, kidneys, liver and excessive bleeding. If blood transfusions are necessary, note that transfusions may cause intolerance reactions such as anaphylaxis or other complex reactions. Despite best efforts, the results of spine surgery might not heal in terms of bone, soft tissues such as skin, fascia, ligaments, and joints. Additionally, in order to achieve best possible results, spine surgery may be carried out beyond the initially planned levels and involve decompression, fusion including insertion of hardware at levels other than the original intended area of surgical interest change some portions of the procedure in order to ensure the best possible outcomes. With spine surgery and spinal fusion, there are different off label uses of instrumentation (devices, implants and hardware) as well as biological substances (bone morphogenic proteins, demineralized bone matrix) as well as using extra bone from allograft sources (i.e. cadaver bone) or autograft (iliac crest bone, ribs, or the spine itself). The patient has been given information about these practices and their inherent risks and benefits. [facility] is an educational center that serves as a training facility for neurosurgical and orthopedic SCHOOL PHOTOGRAPHER and Nursing students. Physician assistants are medically trained surgical providers who function in the outpatient, inpatient, and operating room setting under the direct supervision of the attending surgeon. [facility] has multiple operating rooms with single and overlapping rooms running daily. They currently function under the required guidelines as produced by the Senate Finance Committee with regards to the overlapping rooms and will continue to comply with changes to this policy as they occur. The requirements include and are complied with as follows: (1) the critical portions of the overlapping rooms will not occur at the same time, (2) the attending physician will be physically present during the critical portions of the procedure and immediately available during the entire case, and (3) a back-up attending is designated should the primary attending not be immediately available. The patient has had a chance to review all the listed information, has been given print outs detailing this information, and has had all his/her questions answered to their satisfaction. It was my pleasure to have seen and examined Ms. Levy. In our visit today we have had a chance to go over my understanding of our patient's current conditio n, the natural course history without intervention and various interventional options. Questions were invited and answered, and the patient wishes to proceed as outlined above. I have seen and examined the patient for 25 minutes and we have spent more than 50% of the time in repeat and detailed counseling about the patient's condition, its natural course history with out and as much as can be predicted with surgery and re-review of various surgical treatment options. In conclusion, Ms. Levy requested we proceed with the above suggested surgery and are willing to accept risks and limitations of the suggested surgery as nature of the disease process and our best attempts at treatment for the condition. Thank you again for allowing us to be part of your patient's care. Please don't hesitate to contact me if you have any further questions. Follow-up: Preoperative Appointment Patient Education: (Informational booklet, instructions, etc) given at today's appointment: Yes .ED:Patient Education: Y Medications Reviewed: YES In our visit today Ms. Levy and I have had a chance to go over my understanding of the patient's current condition, the natural course history without intervention and various interventional options. Questions were invited and answered, and the patient wishes to proceed as outlined above. I will be sure to keep you updated afterMs. Levy returns here for further follow-up. Thank you again for your referral. Please do not hesitate to contact me if you have any further questions. Signed and authenticated by: [facility] [address], [address] [place] [address] This message is confidential, intended only for the named recipient(s) and may contain information that is privileged or exempt from disclosure under applicable law. If you are not the intended recipient(s), you are notified that the dissemination, distribution or copying of this information is strictly prohibited. If you received this message in error, please notify the sender then delete this message. Patient verbalizes understanding of the information discussed. The above note was initiated by Malka Robin, physician recording engineer third assistant for Dr. Yaw Santamaria. This note has been reviewed by Dr. Santamaria, who has made his personal changes and impressions for this document. CC: Amanda Lindsay MD Rx: HYDROcodone 5 mg-acetaminophen 325 mg tablet, 42, Ref: 0, take 1 tablet by oral route every 6 hours as needed for pain Rx: gabapentin 100 mg capsule, 90, Ref: 0, take 1 capsule (100 mg) by oral route 3 times per day Rx: cyclobenzaprine 10 mg tablet, 40, Ref: 0, take 1 tablet (10 mg) by oral route 3 times per day # SIGNED BY Yaw Santamaria (GOO)01/05/2023 07:54AM Past Medical History Past Medical History: Asthma, GERD/Reflux, Skin Disorder Additional Past Medical History / Comment(s): Eczema, constipation. History of Any Multi-Drug Resistant Organisms: None Reported Past Surgical History: Cholecystectomy, Hernia Repair, Uterine Ablation Additional Past Surgical History / Comment(s): D&C, colonoscopy, EGD. Past Anesthesia/Blood Transfusion Reactions: Previous Problems w/ Anesthesia, Motion Sickness Additional Past Anesthesia/Blood Transfusion Reaction / Comment(s): Hard to wake up from anesthesia. Past Psychological History: No Psychological Hx Reported Smoking Status: Never smoker Past Alcohol Use History: None Reported Past Drug Use History: None Reported - Past Family History Mother Family Medical History: Cancer Additional Family Medical History / Comment(s): Breast cancer. Medications and Allergies Home Medications Medication Instructions Recorded Confirmed Type Ibuprofen [Motrin Ib] 800 mg PO Q8H PRN 03/31/20 01/07/23 History Esomeprazole Magnesium 40 mg PO 0400 09/23/22 01/07/23 History polyethylene glycoL 3350 [Miralax] 17 gm PO DAILY PRN 09/23/22 01/07/23 History Acetaminophen [Tylenol Extra 500 - 1,000 mg PO Q4-6H PRN 01/07/23 01/07/23 History Strength] L.acidoph,Paracasei, B.lactis 1 each PO DAILY 01/07/23 01/07/23 History [Probiotic] Multivitamins, Thera [Multivitamin 1 tab PO DAILY 01/07/23 01/07/23 History (formulary)] Allergies Allergy/AdvReac Type Severity Reaction Status Date / Time alcohol Allergy Unknown Verified 01/07/23 10:02 codeine Allergy Unknown Verified 01/07/23 10:02 latex Allergy Unknown Verified 01/07/23 10:02 Penicillins Allergy Unknown Verified 01/07/23 10:02 Physical Examination Osteopathic Statement: *. No significant issues noted on an osteopathic structural exam other than those noted in the History and Physical/Consult.
[~2023-01-09 12:46] MED LIST changes: +ACETAMINOPHEN TAB 500 MG TAB PO PRN; +GABAPENTIN 300 MG CAP PO PRN; -LIDOCAINE 1% (10MG/ML) FOR IV START INTRADERMA PRN; +MIDAZOLAM 2 MG/2 ML VIAL IV PRN; +ONDANSETRON 4 MG/2 ML VIAL IVP PRN; +TRANEXAMIC 1,000 MG/100ML-NACL 1,000 MG in SALINE 1 100ML.BAG IVPB PRN; +fentaNYL (PF) 50 MCG/ML 2 ML AMP IV PRN
[2023-01-09] MEDS ORDERED: fentaNYL (PF) 50 MCG/ML 2 ML AMP ONE (16:06)
[2023-01-09] MEDS ORDERED: SUCCINYLCHOLINE CHLORIDE 200 MG/10 ML VIAL IV ONE (16:06)
[2023-01-09] MEDS ORDERED: PHENYLEPHRINE 10 MG/ML 5 ML VIAL ONE (16:06)
[2023-01-09] MEDS ORDERED: PROPOFOL 10 MG/ML 20 ML VIAL IV ONE (16:06)
[2023-01-09] MEDS ORDERED: NEOSTIGMINE 1 MG/ML 10 ML VIAL ONE (16:06)
[2023-01-09] MEDS ORDERED: LIDOCAINE 1% INJ 10MG/ML (20 ML MDV) ONE (16:06)
[2023-01-09] MEDS ORDERED: GLYCOPYRROLATE 0.2 MG/ML 2 ML VIAL ONE (16:06)
[2023-01-09] MEDS ORDERED: MIDAZOLAM 2 MG/2 ML VIAL ONE (16:06)
[2023-01-09] MEDS ORDERED: TRANEXAMIC 1,000 MG/100ML-NACL PREMIX BAG ONE (16:06)
[2023-01-09] MEDS ORDERED: diphenhydrAMINE 50 MG/ML 1 ML VIAL ONE (16:06)
[2023-01-09] MEDS ORDERED: ROCURONIUM 10 MG/ML (5 ML VIAL) IV ONE (16:06)
[2023-01-09] MEDS ORDERED: BUPIVACAINE (PF) 0.5% 30 ML VIAL SQ ONE (16:48)
[2023-01-09] MEDS ORDERED: LIDOCAINE 2%-EPI 1:100,000 20 ML VIAL SQ ONE (16:48)
[2023-01-09] MEDS ORDERED: THROMBIN (BOVINE) 5,000 UNIT VIAL MISCELLANE ONE (16:58)
[2023-01-09] MEDS ORDERED: GELATIN SPONGE,ABSORB (LARGE) 1 EACH SPONGE MISCELLANE ONE (16:58)
[2023-01-09] MEDS ORDERED: LACTATED RINGERS 1,000 ML IV ONE (17:06)
--- NOTE | 2023-01-09 17:48 | P.OP ---
Date of Procedure: 01/09/23 Preoperative Diagnosis: 1. L4-5 right HNP 2. RLE radiculopathy 3. RLE weakness 4. LOw back pain Postoperative Diagnosis: 1. L4-5 right HNP 2. RLE radiculopathy 3. RLE weakness 4. LOw back pain Procedure(s) Performed: 1. L4-5 laminoforaminotomy with microdiscecomty (81996) Right use of IO microscope Implants: None Anesthesia: GETA Surgeon: Yaw Santamaria Senior Product Engineer #1: Roman Garcia (Was present and assisted with all aspects of the case from position to closure) Estimated Blood Loss (ml): 50 IV fluids (ml): 1,200 Urine output (ml): 20 Pathology: none sent Condition: stable Disposition: PACU Indications for Procedure: Ms. Levy is presenting for evaluation of low back and right lower extremity pain, right lower extremity numbness, tingling, and weakness. It was my pleasure to have seen and examined Ms. Levy. In our visit today we have had a chance to go over subjective complaints, physical examination findings and treatments including the natural course history without intervention and various interventional options. The patients imaging demonstrates: MRI of the lumbar spine completed at [facility] on 12/11/2022, reviewed today and demonstrates: Images reviewed with pt L4-5 spondylosis noted with large right sided paracentral disc herniation with fragment extrusion and migration caudally. There is moderate to severe central and right foraminal stenosis noted at this level secondary to heriation. Remaining disc heights maintained. Alignment maintained no fracture No lesions XRay Lumbar Multiview (AP, Lateral, Flexion, Extension) with AP pelvis; 5 views taken at [facility] on 12/08/22: - Re-reviewed today with the patient. Mild spondylotic and degenerative changes L4-S1 with preserved alignment. Diminished disc height L4-S1. Vertebral body heights are preserved. No acute osseous abnormalities. Pelvis: No fracture or dislocation. Otherwise, unremarkable. CT scancompleted at [facility] from12/05/22 of [facility]: - Re-reviewed today with the patient. IMPRESSION: 1. No lumbar spine fracture or malalignment. 2. Mild degenerative disease at the L3-4 level and moderate degenerative disease at the L4-5 and L5-S1 levels. 3. Small small focal protrusion/herniation of the L4-5 disc to the left of midline. 4. mild facet are arthropathy in the lower lumbar spine. On physical exam, Ms. Levy demonstrates: A continued sharp, burning pain throughout the low back that radiates down into the buttocks, right hip, and right lower extremity with a sharp, shooting quality. The patient described her buttock and hip pain as a "tight and heavy pain". The patient notes that her right leg pain is associated with numbness and tingling. She notes that her symptoms worsen after prolonged walking, standing, and sitting. She states that her symptoms have started to make it very difficult for her to complete any of her regular activities of daily living. She reports experiencing severe sleep disturbances related to her ongoing pain and associated symptoms. The patient notes that due to the severity of her current symptoms she has been unable to drive for the last 1 month. I have explained to the patient that as their condition progresses it will cause further neurological deficits and eventual paralysis. Based on the patients imaging, physical exam, and the rapid progression and disabling nature of their symptoms, at this time I recommend surgery in the form of a: L4-5 minimally invasive microdiscectomy, right. I discussed the risk and benefits of this procedure at length with Ms. Levy. The patient agreed to considered pursuing the procedure abovementioned. Prior to surgery, she should follow up with her PCP (Cardio, ID, IM etc) for clearance. Questions were invited and answered, and the patient wishes to proceed as outlined below. Currently, I am recommendin.L4-5 minimally invasive microdiscectomy, right Description of Procedure: L4-5 Microdisc Tubes The patient was seen and examined in the preoperative area. All preoperative protocols were followed. Informed consent was obtained, risks and benefits of the procedure were discussed at length. Risks including bleeding infection damage to the surrounding tissue and risk of reoperation were discussed with the patient. Risk of anesthesia up to and including was discussed with the patient. These are outlined in the risk review. They were willing to accept these risks and all the risks of surgery. The patient was given a weight-based dose of antibiotics in the form of 2 g Ancef. The patient was seen and evaluated by the anesthesia team who deemed them fit for surgery. The site was marked, the patient was willing to proceed with the procedure. The patient was transferred to the operative suite by the Department of anesthesia. They were then drifted off to sleep by the department anesthesia and GETA was performed. The patient tolerated this well. Once confirmation of lines and ventilation the patient was transferred to a prone Montrell table very carefully. All bony prominences including wrists, elbows, axilla, chest, hips, and thighs, and feet were padded very well. Special attention was paid to the genitalia, and these were padded accordingly. SCDs were placed on bilateral lower extremities and were connected. Arms were well padded and placed on arm boards up and out in the 90/90 position. Once in position, again we confirmed good ventilation capabilities and that lines were running appropriately. The patients Lumbar spine was then exposed. 1010s were placed outlining the incision site. Standard alcohol was used to clean the incision site and allowed to dry. C-arm was used to needle localize the pedicles at L4-5 and bio-gino the patient and confirm level for incision which was marked with a skin marker. Operative briefing was performed with all teams and everyone in agreement to proceed. The patient was then prepped and draped in a normal sterile fashion. Timeout was then performed, and all parties agreed with the procedure to be performed. Skin incision was made over the previously marked area and dissection taken down to the deep facia which was split just off midline for a midline sparing approach. Imaging was used to position tubular retractor system. First dialator was placed and then sequential dilation done up to 26mm tube. This was selected to length and placed with imaging. Tamiment 4 was placed at the level of the pars of L4 and a lateral image taken to confirm operative level. Retractors were then placed. Microscope was then brought in for visualization. Alvaro-laminotomy, partial medial facetectomy and foraminotomy were performed at L4-5 using high speed ila and Kerrison rongure. The ligamentum flavum was removed with Kerrison and curette. Dura and roots protected. The disc space was identified along with the herniation. 11 blade was used to make small annulotomy and micro-pituitary used to remove loose disc fragments. Once fragments were removed, down biting curette was used to push any medial fragments down and towards the annulotomy and decompress centrally. The disc space was irrigated, and any loose fragments removed again. Bipolar was used for hemostasis and scarring of the annulotomy. The area was irrigated, and meticulous hemostasis performed. The bed was inspected, and all roots have ample room and are decompressed along with the dura. There were no injuries. Retractors were then removed. The wound was copiously irrigated with NSS. The deep fascia was closed with 0 PDS. Deep sub-q with 0 Vicryl and superficial with 2-0 Vicryl. Subcuticular was closed with 3-0 stratafix. The wound edges approximated well. The wound was then cleaned, and glue tape placed on the skin and allowed to dry. It was then Covered with an Opifoam dressing. The patient was then transferred off the table back to their hospital bed a- traumatically. They were extubated by the department of anesthesia. They were then transferred to PACU in stable condition having tolerated the procedure with no complications.
--- NOTE | 2023-01-09 18:09 | XR ---
Intraoperative/procedural fluoroscopic services were provided. Total fluoroscopy time is 39.4 seconds with a total of 4 submitted images to PACS. Please see the operative/procedural note for further det ails. DAP: 10.431 Gycm2
[2023-01-09] MEDS ORDERED: ONDANSETRON 4 MG/2 ML VIAL IVP ONE (19:21)
[2023-01-09] MEDS ORDERED: LACTATED RINGERS 1,000 ML IV SCH (19:30)
[2023-01-09 20:03] VITALS: BP 104/67; PULSE 67; RESP 17; TEMP 97.4
== END 2023-01-10 01:55 | disposition home or self-care (01) ==
LOC: OR 12:46 → 4SSUR 17:32 → OR 01-10 01:55
PROVIDERS: ATTEND Orthopaedic Surgery
DX: M51.26 Other intervertebral disc displacement, lumbar region (principal); M47.26 Other spondylosis with radiculopathy, lumbar region; M25.552 Pain in left hip; M79.604 Pain in right leg; M25.532 Pain in left wrist; Z79.1 Long term (current) use of non-steroidal anti-inflammatories (NSAID); Z79.2 Long term (current) use of antibiotics; Z79.891 Long term (current) use of opiate analgesic; Z79.899 Other long term (current) drug therapy
CPT/HCPCS: 63030; 72100; J0690; J2405; J0665; 81025

== ENCOUNTER → 2023-02-26 | Outpatient (CLI) | payer OTHER ==
--- NOTE | 2023-02-26 19:32 | US ---
EXAMINATION TYPE: US venous doppler duplex LE DATE OF EXAM: 02/26/2023 4:14 PM COMPARISON: US 2022 CLINICAL INDICATION: Female, 47 years old with history of R22.41 LOCALIZED SWELLING, MASS AND LUMP, R IGHT LO; Right leg pain SIDE PERFORMED: Bilateral TECHNIQUE: The lower extremity deep venous system is examined utilizing real time linear array sonog efren with graded compression, doppler sonography and color-flow sonography. VESSELS IMAGED: Common Femoral Vein Deep Femoral Vein Greater Saphenous Vein * Femoral Vein Popliteal Vein Small Saphenous Vein * Proximal Calf Veins (* superficial vessels) Right Leg: Appears negative for DVT Left Leg: Appears negative for DVT IMPRESSION: Grayscale, color doppler, spectral doppler imaging performed of the deep veins of the lo wer extremities. There is normal flow, compressibility, vascular waveforms.
== END | disposition home or self-care (01) ==
LOC: RADUSWWP 15:42
PROVIDERS: ATTEND Orthopaedic Surgery
DX: R22.41 Localized swelling, mass and lump, right lower limb (principal)
CPT/HCPCS: 93970

== ENCOUNTER → 2023-04-27 | Outpatient (CLI) | payer OTHER ==
--- NOTE | 2023-04-27 15:08 | CT ---
EXAMINATION TYPE: CT abdomen pelvis w con DATE OF EXAM: 04/27/2023 COMPARISON: 08/11/2021 HISTORY: ABDOMINAL DISTENSION CT DLP: 1964 mGycm Automated exposure control for dose reduction was used. TECHNIQUE: Helical acquisition of images was performed from the lung bases through the pelvis. CONTRAST: Performed with Oral Contrast and with IV Contrast, patient injected with 100 mL of Isovue 300. FINDINGS: The lung bases are clear. There are surgical absence of the gallbladder. There is no biliary ductal dilatation. There is no focal mass or organomegaly involving the liver, pancreas, spleen or adrenal glands. There is no solid renal mass or hydronephrosis and there is homogeneous contrast enhancement of the r enal parenchyma. The caliber the abdominal aorta is normal is no retroperitoneal adenopathy or hemorr terrell. The bowel loops are normal in caliber and there is no evidence of dilatation or obstruction. No infla mmatory changes are identified in the bowel wall or mesentery. There is no free intraperitoneal air or fluid. No pelvic mass, free fluid, abscess or adenopathy. The osseous structures and soft tissues are intact. IMPRESSION: No significant abnormality seen.
== END | disposition home or self-care (01) ==
LOC: RADCTMAIN 12:28
PROVIDERS: ATTEND Family Medicine
DX: R14.0 Abdominal distension (gaseous) (principal); R19.5 Other fecal abnormalities; Z90.49 Acquired absence of other specified parts of digestive tract
CPT/HCPCS: 74177; Q9967

== ENCOUNTER → 2023-06-08 | Outpatient (CLI) | payer OTHER ==
--- NOTE | 2023-06-09 20:37 | MR ---
EXAMINATION TYPE: MR lumbar spine wo con DATE OF EXAM: 06/08/2023 10:43 AM CLINICAL INDICATION:Female, 48 years old with history of M54.16 lumbar pain; PHH, Low back pain into rt leg COMPARISON: None TECHNIQUE: Multi planar, multi sequence imaging was performed utilizing: T1-weighted, T2-weighted, a nd turbo inversion recovery imaging of the lumbar spine. IV Contrast: cc . (None if empty) FINDINGS: Alignment: The lumbar vertebral bodies have preserved heights and alignment. Cord: The conus medullaris and the distal spinal cord appear unremarkable with regards to their signa l intensity and morphology. Bones/Discs: Mild degeneration changes throughout the spine with osteophyte formation and facet joint arthropathy. Intervertebral disc signal is maintained. T12-L1: No evidence of significant spinal canal stenosis or neural foraminal stenosis. L1-L2: No evidence of significant spinal canal stenosis or neural foraminal stenosis. L2-L3: No evidence of significant spinal canal stenosis or neural foraminal stenosis. L3-L4: Disc bulge and facet joint arthropathy result in mild spinal canal and mild bilateral neural f oraminal stenosis. L4-L5: Disc bulge and facet joint arthropathy result in mild spinal canal and moderate bilateral neur al foraminal stenosis. L5-S1: Disc bulge and facet joint arthropathy result in mild spinal canal and mild bilateral neural f oraminal stenosis. No significant spinal canal or neural foraminal stenosis in the remainder of the visualized levels. Other findings: None. IMPRESSION: 1. No definitive evidence of disc herniation or significant spinal canal stenosis. 2. Mild disc degeneration with associated osteoarthritic changes. Scattered at least mild and modera te neural foraminal stenosis. Moderate L4-L5.
== END | disposition home or self-care (01) ==
LOC: RADMRIMAIN 09:51
PROVIDERS: ATTEND Orthopaedic Surgery
DX: M51.16 Intervertebral disc disorders with radiculopathy, lumbar region (principal); M99.73 Connective tissue and disc stenosis of intervertebral foramina of lumbar region
CPT/HCPCS: 72148

== ENCOUNTER 2023-08-30 10:54 | Emergency (ER) | payer OTHER ==
[2023-08-30 10:59] VITALS: RESP 18; TEMP 97.8
--- NOTE | 2023-08-30 11:23 | ED ---
Abdominal Pain HPI - General Chief Complaint: Abdominal Pain Stated Complaint: abd pain Time Seen by Provider: 08/30/23 11:10 Source: patient, RN notes reviewed Mode of arrival: ambulatory Limitations: no limitations - History of Present Illness Initial Comments: This is a 48-year-old female's emergency department chief complaint of abdominal cramping over the past few days. Patient states that she took fiber gummy supplements earlier in the week, he has never tried before, and has since been experiencing abdominal discomfort. States that she has had multiple episodes of diarrhea in addition to flatulence and cramping. Have a history of "GI symptoms "and normally takes a dose of miralax daily as directed by her GI specialist. Patient denies dyschezia, hematochezia, dark or tarry stools. She denies nausea, vomiting, fevers or chills. She denies dysuria, hematuria, vaginal bleeding or discharge, increase in frequency or urgency, chest pain, chest pressure, dyspnea, dizziness lightheadedness. - Related Data Home Medications Medication Instructions Recorded Confirmed Ibuprofen [Motrin Ib] 800 mg PO Q8H PRN 03/31/20 01/07/23 Esomeprazole Magnesium 40 mg PO 0400 09/23/22 01/07/23 polyethylene glycoL 3350 [Miralax] 17 gm PO DAILY PRN 09/23/22 01/09/23 Acetaminophen [Tylenol Extra 500 - 1,000 mg PO Q4-6H PRN 01/07/23 01/09/23 Strength] L.acidoph,Paracasei, B.lactis 1 each PO DAILY 01/07/23 01/09/23 [Probiotic] Multivitamins, Thera [Multivitamin 1 tab PO DAILY 01/07/23 01/07/23 (formulary)] Previous Rx's Medication Instructions Recorded Cyclobenzaprine [Flexeril] 10 mg PO TID PRN #40 tab 01/09/23 Gabapentin 300 mg PO TID #90 cap 01/09/23 HYDROcodone/APAP 10-325MG [[place]ona 1 tab PO Q4HR PRN 7 Days #42 tab 01/09/23 10-325] Sennosides/Docusate Sodium [Senna 1 each PO BID PRN #20 capsule 01/09/23 Plus 8.6-50 mg Softgel] cefaDROXiL [Duricef] 500 mg PO Q12HR #20 cap 01/09/23 Allergies Allergy/AdvReac Type Severity Reaction Status Date / Time alcohol Allergy Unknown Verified 08/30/23 10:59 codeine Allergy Unknown Verified 08/30/23 10:59 latex Allergy Unknown Verified 08/30/23 10:59 Penicillins Allergy Unknown Verified 08/30/23 10:59 Review of Systems ROS Statement: Those systems with pertinent positive or pertinent negative responses have been documented in the HPI. ROS Other: All systems not noted in ROS Statement are negative. Past Medical History Past Medical History: GERD/Reflux Additional Past Medical History / Comment(s): eczema, constipation History of Any Multi-Drug Resistant Organisms: None Reported Past Surgical History: Cholecystectomy, Hernia Repair, Uterine Ablation Additional Past Surgical History / Comment(s): D&C Past Anesthesia/Blood Transfusion Reactions: Previous Problems w/ Anesthesia Additional Past Anesthesia/Blood Transfusion Reaction / Comment(s): hard to wake up from anesthesia Past Psychological History: No Psychological Hx Reported Smoking Status: Never smoker Past Alcohol Use History: None Reported Past Drug Use History: None Reported - Past Family History Mother Family Medical History: Cancer General Exam Limitations: no limitations General appearance: alert, in no apparent distress Head exam: Present: atraumatic, normocephalic, normal inspection Eye exam: Present: normal appearance, PERRL, EOMI. Absent: scleral icterus, conjunctival injection, periorbital swelling ENT exam: Present: normal exam, mucous membranes moist Neck exam: Present: normal inspection. Absent: tenderness, meningismus, lymphadenopathy Respiratory exam: Present: normal lung sounds bilaterally. Absent: respiratory distress, wheezes, rales, rhonchi, stridor Cardiovascular Exam: Present: regular rate, normal rhythm, normal heart sounds. Absent: systolic murmur, diastolic murmur, rubs, gallop, clicks GI/Abdominal exam: Present: soft, normal bowel sounds. Absent: distended, tenderness, guarding, rebound, rigid Extremities exam: Present: normal inspection, full ROM, normal capillary refill. Absent: tenderness, pedal edema, joint swelling, calf tenderness Back exam: Present: normal inspection Neurological exam: Present: alert, oriented X3 Skin exam: Present: warm, dry, intact, normal color. Absent: rash Course Vital Signs 08/30/23 08/30/23 10:55 12:16 Temperature 97.8 F Pulse Rate 81 82 Respiratory 18 18 Rate Blood Pressure 132/78 123/79 O2 Sat by Pulse 98 97 Oximetry Medical Decision Making - Medical Decision Making Was pt. sent in by a medical professional or institution (SOHAIL Russo, DRY GOODS CLERK, urgent care, hospital, or [facility]...) When possible be specific @ -No Did you speak to anyone other than the patient for history (EMS, parent, family, police, friend...)? What history was obtained from this source @ -No Did you review nursing and triage notes (agree or disagree)? Why? @ -I reviewed and agree with nursing and triage notes Were old charts reviewed (outside hosp., previous admission, EMS record, old EKG, old radiological studies, urgent care reports/EKG's, [facility] records)? Report findings @ -No old charts were reviewed Differential Diagnosis (chest pain, altered mental status, abdominal pain women, abdominal pain men, vaginal bleeding, weakness, fever, dyspnea, syncope, headache, dizziness, GI bleed, back pain, seizure, CVA, palpatations, mental health, musculoskeletal)? @ -Differential Abdominal Pain Women: Appendicitis, Cholecystitis, diverticulosis, ischemic bowel, pancreatitis, hepatitis, UTI, gastroenteritis, AAA, incarcerated hernia, bowel obstruction, constipation, inflammatory bowel, hepatitis, peptic ulcer disease, splenic infarction, perforated viscus, vulvitis, ovarian torsion, PID, kidney stone, placenta abruption, this is not meant to be an all-inclusive list EKG interpreted by me (3pts min.). @ -None X-rays interpreted by me (1pt min.). @ -X-ray KUB no acute process identified. CT interpreted by me (1pt min.). @ -None done U/S interpreted by me (1pt. min.). @ -None done What testing was considered but not performed or refused? (CT, X-rays, U/S, labs)? Why? @ -You have the abdomen was considered but deferred. On physical examination patient has no signs of abdominal tenderness. Negative Rovsing's and psoas sign. What meds were considered but not given or refused? Why? @ -None Did you discuss the management of the patient with other professionals (professionals i.e. SOHAIL Russo, DRY GOODS CLERK, lab, RT, psych nurse, social media editor, labor crew supervisor, teacher, career services officer, correctional case manager)? Give summary @ -No Was smoking cessation discussed for >3mins.? @ -No Was critical care preformed (if so, how long)? @ -No Were there social determinants of health that impacted care today? How? (Homelessness, low income, unemployed, alcoholism, drug addiction, transportation, low edu. Level, literacy, decrease access to med. care, halfway, rehab)? @ -No Was there de-escalation of care discussed even if they declined (Discuss DNR or withdrawal of care, Hospice)? DNR status @ -No What co-morbidities impacted this encounter? (DM, HTN, Smoking, COPD, CAD, Cancer, CVA, ARF, Chemo, Hep., AIDS, mental health diagnosis, sleep apnea, morbid obesity)? @ -None Was patient admitted / discharged? Hospital course, mention meds given and route, prescriptions, significant lab abnormalities, going to OR and other pertinent info. @ -discharge. 48-year-old female with abdominal pain and diarrhea. On examination patient has a soft abdomen, mild tenderness to the right lower quadrant rated as a 1 out of 10. Negative Rovsing's and psoas sign. Patient will be evaluated via laboratory studies, x-ray of the abdomen and urinalysis., Patient has a history of gastric reflux and states that she is experiencing symptoms of heartburn at this time due to eating a dinner of acidic foods yesterday is requesting medication for this therefore a push of Protonix was ordered. Patient's labs including CBC, CMP and urinalysis unremarkable. A mylase and lipase not elevated. X-ray nonconcerning. At this time discussion with the patient subsequently secondary to use of a fiber supplement that she took earlier in the week. Recommend that patient discontinue use of fiber supplement and increase oral rehydration. All questions answered at bedside and strict return parameters discussed with the patient she is verbalized understanding. Case discussed with Dr. Morfin. Undiagnosed new problem with uncertain prognosis? @ -No Drug Therapy requiring intensive monitoring for toxicity (Heparin, Nitro, Insulin, Cardizem)? @ -No Were any procedures done? @ -No Diagnosis/symptom? @ -Abdominal bloating, diarrhea Acute, or Chronic, or Acute on Chronic? @ -acute Uncomplicated (without systemic symptoms) or Complicated (systemic symptoms)? @ -uncomplicated Side effects of treatment? @ -No Exacerbation, Progression, or Severe Exacerbation? @ -No Poses a threat to life or bodily function? How? (Chest pain, [place], [place], pneumonia, PE, COPD, DKA, ARF, appy, cholecystitis, CVA, Diverticulitis, Homicidal, Suicidal, threat to staff... and all critical care pts) @ -No - Lab Data Result diagrams: 08/30/23 11:22 08/30/23 11:22 Lab Results 08/30/23 08/30/23 08/30/23 Range/Units 11:22 11:22 11:22 WBC 7.3 (3.8-10.6) k/uL RBC 4.76 (3.80-5.40) m/uL Hgb 14.0 (11.4-16.0) gm/dL Hct 42.3 (34.0-46.0) % MCV 88.7 (80.0-100.0) fL MCH 29.3 (25.0-35.0) pg MCHC 33.1 (31.0-37.0) g/dL RDW 13.0 (11.5-15.5) % Plt Count 268 (150-450) k/uL MPV 10.1 Neutrophils % 60 % Lymphocytes % 29 % Monocytes % 6 % Eosinophils % 2 % Basophils % 0 % Neutrophils # 4.4 (1.3-7.7) k/uL Lymphocytes # 2.1 (1.0-4.8) k/uL Monocytes # 0.5 (0-1.0) k/uL Eosinophils # 0.1 (0-0.7) k/uL Basophils # 0.0 (0-0.2) k/uL Sodium 136 L (137-145) mmol/L Potassium 4.5 (3.5-5.1) mmol/L Chloride 106 (98-107) mmol/L Carbon Dioxide 23 (22-30) mmol/L Anion Gap 7 mmol/L BUN 15 (7-17) mg/dL Creatinine 0.87 (0.52-1.04) mg/dL Est GFR (CKD-EPI)AfAm >90 (>60 ml/min/1.73 sqM) Est GFR (CKD-EPI)NonAf 79 (>60 ml/min/1.73 sqM) Glucose 93 (74-99) mg/dL Calcium 9.8 (8.4-10.2) mg/dL Total Bilirubin 0.4 (0.2-1.3) mg/dL AST 32 (14-36) U/L ALT 19 (4-34) U/L Alkaline Phosphatase 58 (38-126) U/L Total Protein 7.2 (6.3-8.2) g/dL Albumin 4.6 (3.5-5.0) g/dL Amylase 63 (30-110) U/L Lipase 308 H (23-300) U/L Urine Color Light Yellow Urine Appearance Cloudy H (Clear) Urine pH 5.5 (5.0-8.0) Ur Specific [place] 1.015 (1.001-1.035) Urine Protein Negative (Negative) Urine Glucose (UA) Negative (Negative) Urine Ketones Negative (Negative) Urine Blood Negative (Negative) Urine Nitrite Negative (Negative) Urine Bilirubin Negative (Negative) Urine Urobilinogen <2.0 (<2.0) mg/dL Ur Leukocyte Esterase Negative (Negative) Urine RBC 2 (0-5) /hpf Urine WBC 1 (0-5) /hpf Ur Squamous Epith Cells 6 H (0-4) /hpf Disposition Clinical Impression: Abdominal cramping, Diarrhea Disposition: HOME SELF-CARE Condition: Good Instructions (If sedation given, give patient instructions): Gas and Bloating (ED) Additional Instructions: Return to the emergency department if symptoms worsen or do not improve. Is patient prescribed a controlled substance at d/c from ED?: No Referrals: Amanda Lindsay MD [Primary Care Provider] - 1-2 days Time of Disposition: 12:09
[2023-08-30] MEDS: PANTOPRAZOLE 40 MG/10 ML VIAL IVP STA (11:28)
[2023-08-30 11:45] LABS: Basophils % (A) 0 %; Eosinophils # (A) 0.1 k/uL (0-0.7); Eosinophils % (A) 2 %; HCT 42.3 % (34.0-46.0); Lymphocytes # (A) 2.1 k/uL (1.0-4.8); Lymphocytes % (A) 29 %; MCH 29.3 pg (25.0-35.0); MCHC 33.1 g/dL (31.0-37.0); MCV 88.7 fL (80.0-100.0); Mean Platelet Volume 10.1; Monocytes # (A) 0.5 k/uL (0-1.0); Monocytes % (A) 6 %; Neutrophils # (A) 4.4 k/uL (1.3-7.7); Neutrophils % (A) 60 %; Platelet Count 268 k/uL (150-450); RBC 4.76 m/uL (3.80-5.40); WBC 7.3 k/uL (3.8-10.6)
--- NOTE | 2023-08-30 11:52 | XR ---
EXAMINATION TYPE: XR KUB DATE OF EXAM: 08/30/2023 COMPARISON: None INDICATION: Abdomen pain TECHNIQUE: Single view abdomen frontal upright view FINDINGS: There is a normal bowel gas pattern. No free air is evident. No differential air-fluid levels are britta dent. Psoas margins are normal. No organomegaly is present. No suspicious calcifications evident. Osseous structures appear intact. Cholecystectomy clips are pre sent. IMPRESSION: 1. Unremarkable Abdomen
[2023-08-30 11:55] LABS: ALT 19 U/L (4-34); AST 32 U/L (14-36); African American GFR (CKD) >90 (>60 ml/min/1.73 sqM); Albumin 4.6 g/dL (3.5-5.0); Alkaline Phosphatase 58 U/L (38-126); Amylase 63 U/L (30-110); Anion Gap 7 mmol/L; Blood Urea Nitrogen 15 mg/dL (7-17); Calcium 9.8 mg/dL (8.4-10.2); Carbon Dioxide 23 mmol/L (22-30); Chloride 106 mmol/L (98-107); Glucose 93 mg/dL (74-99); Lipase 308 U/L (23-300); Non-African American GFR(CKD) 79 (>60 ml/min/1.73 sqM); Potassium 4.5 mmol/L (3.5-5.1); Sodium 136 mmol/L (137-145); Total Bilirubin 0.4 mg/dL (0.2-1.3); Total Protein 7.2 g/dL (6.3-8.2)
[2023-08-30 12:03] LABS: Appearance,Urine Cloudy (Clear); Bilirubin,Urine Negative (Negative); Blood,Urine Negative (Negative); Color,Urine Light Yellow; Glucose,Urine (UA) Negative (Negative); Ketones,Urine Negative (Negative); Leukocyte Esterase,Urine Negative (Negative); Nitrite,Urine Negative (Negative); PH, Urine 5.5 (5.0-8.0); Protein,Urine Negative (Negative); RBC,Urine 2 /hpf (0-5); Specific Gravity,Urine 1.015 (1.001-1.035); Squamous Epithelial Cell,Urine 6 /hpf (0-4); Urobilinogen,Urine <2.0 mg/dL (<2.0); WBC,Urine 1 /hpf (0-5)
[2023-08-30 12:18] VITALS: BP 123/79; PULSE 82
== END 2023-08-30 12:19 | disposition home or self-care (01) ==
LOC: EC 10:54
DX: R14.0 Abdominal distension (gaseous) (principal); R19.7 Diarrhea, unspecified; Z88.0 Allergy status to penicillin; Z88.5 Allergy status to narcotic agent; Z91.040 Latex allergy status; Z91.048 Other nonmedicinal substance allergy status
CPT/HCPCS: 36415; 80053; 82150; 83690; 85025; 81001; 74018; 99284; 96374; C9113

== ENCOUNTER 2023-09-19 21:39 | Emergency (ER) | payer OTHER ==
--- NOTE | 2023-09-19 22:34 | ED ---
General Adult HPI - General Chief complaint: Abdominal Pain Stated complaint: Acid reflux Time Seen by Provider: 09/19/23 21:57 Source: patient Mode of arrival: ambulatory Limitations: no limitations - History of Present Illness Initial comments: Dictation was produced using [employer] dictation software. please excuse any grammatical, word or spelling errors. Chief Complaint: 48-year-old female history of gastritis and reflux presents to the ER for severe reflux symptoms History of Present Illness: Patient 48-year-old female states that over the last week she had spaghetti with tomato sauce. States that her reflux symptoms flared up. She then had barbecue the following day which did not help her reflux symptoms. Patient states that she has burks excision every time she eats or drinks liquid. States that it is in her substernal chest and radiates to all the way her throat. Nonradiating. No history of cardiac disease. She does have some history of acute coronary syndrome in the family. Patient does follow-up with GI she takes Nexium 40 mg daily for reflux. The ROS documented in this emergency department record has been reviewed and confirmed by me. Those systems with pertinent positive or negative responses have been documented in the HPI. All other systems are other negative and/or noncontributory. - Related Data Home Medications Medication Instructions Recorded Confirmed Ibuprofen [Motrin Ib] 800 mg PO Q8H PRN 03/31/20 01/07/23 Esomeprazole Magnesium 40 mg PO 0400 09/23/22 01/07/23 polyethylene glycoL 3350 [Miralax] 17 gm PO DAILY PRN 09/23/22 01/09/23 Acetaminophen [Tylenol Extra 500 - 1,000 mg PO Q4-6H PRN 01/07/23 01/09/23 Strength] L.acidoph,Paracasei, B.lactis 1 each PO DAILY 01/07/23 01/09/23 [Probiotic] Multivitamins, Thera [Multivitamin 1 tab PO DAILY 01/07/23 01/07/23 (formulary)] Previous Rx's Medication Instructions Recorded Cyclobenzaprine [Flexeril] 10 mg PO TID PRN #40 tab 01/09/23 Gabapentin 300 mg PO TID #90 cap 01/09/23 HYDROcodone/APAP 10-325MG [[place] 1 tab PO Q4HR PRN 7 Days #42 tab 01/09/23 10-325] Sennosides/Docusate Sodium [Senna 1 each PO BID PRN #20 capsule 01/09/23 Plus 8.6-50 mg Softgel] cefaDROXiL [Duricef] 500 mg PO Q12HR #20 cap 01/09/23 Allergies Allergy/AdvReac Type Severity Reaction Status Date / Time alcohol Allergy Unknown Verified 09/19/23 21:42 codeine Allergy Unknown Verified 09/19/23 21:42 latex Allergy Unknown Verified 09/19/23 21:42 Penicillins Allergy Unknown Verified 09/19/23 21:42 Review of Systems ROS Statement: Those systems with pertinent positive or pertinent negative responses have been documented in the HPI. ROS Other: All systems not noted in ROS Statement are negative. Past Medical History Past Medical History: GERD/Reflux Additional Past Medical History / Comment(s): eczema, constipation History of Any Multi-Drug Resistant Organisms: None Reported Past Surgical History: Cholecystectomy, Hernia Repair, Uterine Ablation Additional Past Surgical History / Comment(s): D&C Past Anesthesia/Blood Transfusion Reactions: Previous Problems w/ Anesthesia Additional Past Anesthesia/Blood Transfusion Reaction / Comment(s): hard to wake up from anesthesia Past Psychological History: No Psychological Hx Reported Smoking Status: Never smoker Past Alcohol Use History: None Reported Past Drug Use History: None Reported - Past Family History Mother Family Medical History: Cancer General Exam - General Exam Comments Initial Comments: PHYSICAL EXAM: General Impression: Alert and oriented x3, not in acute distress HEENT: Normocephalic atraumatic, extra-ocular movements intact, pupils equal and reactive to light bilaterally, mucous membranes moist. Cardiovascular: Heart regular rate and rhythm Chest: Able to complete full sentences, no retractions, no tachypnea Abdomen: abdomen soft, non-tender, non-distended, no organomegaly Musculoskeletal: Pulses present and equal in all extremities, no peripheral edema Motor: no focal deficits noted Neurological: CN II-XII grossly intact, no focal motor or sensory deficits noted Skin: Intact with no visualized rashes Psych: Normal affect and mood Limitations: no limitations Course Vital Signs 09/19/23 09/19/23 21:40 22:45 Temperature 97.9 F Pulse Rate 79 77 Respiratory 18 14 Rate Blood Pressure 131/83 130/80 O2 Sat by Pulse 98 95 Oximetry - Reevaluation(s) Reevaluation #1: 07/14/24 01:37 Patient given GI cocktail with improvement of her chest and abdominal symptoms however she does complain of some throat irritation. Patient offered Decadron refused wants to just gargle some salt water at home. EKG Findings - EKG Comments: EKG Findings:: My EKG interpretation: Ventricular rate 65, sinus rhythm,. 180, cures 85, QTc 420. No GA prolongation, no QTC prolongation, no ST or T-wave changes noted. Overall, this EKG is unremarkable Medical Decision Making - Medical Decision Making Was pt. sent in by a medical professional or institution (, PA, TIMBER APPRAISER, urgent care, hospital, or shelter...) When possible be specific @ -[No] Did you speak to anyone other than the patient for history (EMS, parent, family, police, friend...)? What history was obtained from this source @ -[No] Did you review nursing and triage notes (agree or disagree)? Why? @ -[I reviewed and agree with nursing and triage notes] Were old charts reviewed (outside hosp., previous admission, EMS record, old EKG, old radiological studies, urgent care reports/EKG's, shelter records)? Report findings @ -[No old charts were reviewed] Differential Diagnosis (chest pain, altered mental status, abdominal pain women, abdominal pain men, vaginal bleeding, musculoskeletal, weakness, fever, dyspnea, syncope, headache, dizziness, GI bleed, back pain, seizure, CVA, palpatations, mental health)? @ -Differential Chest Pain: Stable Angina, Unstable Angina, STEMI, NSTEMI Aortic Dissection, Pneumothorax, Musculoskeletal, Esophageal Spasm GERD, Cholecystitis, Pancreatitis, Zoster, this is not meant to be an all-inclusive list. EKG interpreted by me (3pts min.). @ -See above X-rays interpreted by me (1pt min.). @ -Chest x-ray is nonacute CT interpreted by me (1pt min.). @ -[None done] U/S interpreted by me (1pt. min.). @ -[None done] What testing was considered but not performed or refused? (CT, X-rays, U/S, labs)? Why? @ -[None] What meds were considered but not given or refused? Why? @ -[None] Was smoking cessation discussed for >3mins.? @ -[No] Were there social determinants of health that impacted care today? How? (Homelessness, low income, unemployed, alcoholism, drug addiction, transportation, low edu. Level, literacy, decrease access to med. care, halfway, rehab)? @ -[No] Was there de-escalation of care discussed even if they declined (Discuss DNR or withdrawal of care, Hospice)? DNR status @ -[No] What co-morbidities impacted this encounter? (DM, HTN, Smoking, COPD, CAD, Cancer, CVA, ARF, Chemo, Hep., AIDS, mental health diagnosis, sleep apnea, morbid obesity)? @ -[None] Was patient admitted / discharged? Hospital course, mention meds given and route, prescriptions, significant lab abnormalities, going to OR and other pertinent info. @ -48-year-old female presents to the emergency department for worsening reflux symptoms. Vital signs are stable. EKG is unremarkable. Labs are within acceptable limits. Symptoms are improved with GI cocktail. Patient still complaining of some throat irritation. Offered Decadron but refused. Patient discharged told to follow-up with her GI doctor. Did you discuss the management of the patient with other professionals (professionals i.e. , PA, TIMBER APPRAISER, lab, RT, psych nurse, social work administrator, collections representative, teacher, landcare officer, case investigator)? Give summary @ -[No] Was critical care preformed (if so, how long)? @ -[No] Undiagnosed new problem with uncertain prognosis? @ -[No] Drug Therapy requiring intensive monitoring for toxicity (Heparin, Nitro, Insulin, Cardizem)? @ -[No] Were any procedures done? @ -[No] Diagnosis/symptom? Acute, or Chronic, or Acute on Chronic? Uncomplicated (without systemic symptoms) or Complicated (systemic symptoms)? @ -GERD Side effects of treatment? @ -[No] Exacerbation, Progression, or Severe Exacerbation? @ -[No] Poses a threat to life or bodily function? How? (Chest pain, [place], [place], pneumonia, PE, COPD, DKA, ARF, appy, cholecystitis, CVA, Diverticulitis, Homicidal, Suicidal, threat to staff... and all critical care pts) @ -[No] - Lab Data Result diagrams: 09/19/23 22:48 09/19/23 22:48 Lab Results 09/19/23 09/19/23 09/19/23 Range/Units 22:48 22:48 22:48 WBC 8.4 (3.8-10.6) k/uL RBC 4.34 (3.80-5.40) m/uL Hgb 13.1 (11.4-16.0) gm/dL Hct 39.4 (34.0-46.0) % MCV 90.9 (80.0-100.0) fL MCH 30.1 (25.0-35.0) pg MCHC 33.1 (31.0-37.0) g/dL RDW 13.1 (11.5-15.5) % Plt Count 213 (150-450) k/uL MPV 9.8 Neutrophils % 58 % Lymphocytes % 33 % Monocytes % 6 % Eosinophils % 2 % Basophils % 0 % Neutrophils # 4.9 (1.3-7.7) k/uL Lymphocytes # 2.8 (1.0-4.8) k/uL Monocytes # 0.5 (0-1.0) k/uL Eosinophils # 0.1 (0-0.7) k/uL Basophils # 0.0 (0-0.2) k/uL Sodium 137 (137-145) mmol/L Potassium 3.8 (3.5-5.1) mmol/L Chloride 108 H (98-107) mmol/L Carbon Dioxide 23 (22-30) mmol/L Anion Gap 6 mmol/L BUN 13 (7-17) mg/dL Creatinine 0.81 (0.52-1.04) mg/dL Est GFR (CKD-EPI)AfAm >90 (>60 ml/min/1.73 sqM) Est GFR (CKD-EPI)NonAf 86 (>60 ml/min/1.73 sqM) Glucose 88 (74-99) mg/dL Calcium 9.4 (8.4-10.2) mg/dL Troponin I <0.012 (0.000-0.034) ng/mL Disposition Clinical Impression: GERD (gastroesophageal reflux disease) Disposition: HOME SELF-CARE Condition: Good Instructions (If sedation given, give patient instructions): GERD (Gastroesophageal Reflux Disease) (ED) Is patient prescribed a controlled substance at d/c from ED?: No Referrals: Amanda Lindsay MD [Primary Care Provider] - 1-2 days Anjali Pate MD [STAFF PHYSICIAN] - 1-2 days Time of Disposition: 01:39
[2023-09-19 23:11] LABS: Basophils % (A) 0 %; Eosinophils # (A) 0.1 k/uL (0-0.7); Eosinophils % (A) 2 %; HCT 39.4 % (34.0-46.0); HGB 13.1 gm/dL (11.4-16.0); Lymphocytes # (A) 2.8 k/uL (1.0-4.8); Lymphocytes % (A) 33 %; MCH 30.1 pg (25.0-35.0); MCHC 33.1 g/dL (31.0-37.0); MCV 90.9 fL (80.0-100.0); Mean Platelet Volume 9.8; Monocytes # (A) 0.5 k/uL (0-1.0); Monocytes % (A) 6 %; Neutrophils # (A) 4.9 k/uL (1.3-7.7); Neutrophils % (A) 58 %; Platelet Count 213 k/uL (150-450); RBC 4.34 m/uL (3.80-5.40); RDW 13.1 % (11.5-15.5); WBC 8.4 k/uL (3.8-10.6)
[2023-09-19] MEDS: MAG HYDROX/AL HYDROX/SIMETH 30 ML, HYOSCYAMINE ELIXIR 10 ML, LIDOCAINE VISCOUS 2% 10 ML PO STA (23:24)
[2023-09-19 23:36] LABS: African American GFR (CKD) >90 (>60 ml/min/1.73 sqM); Anion Gap 6 mmol/L; Blood Urea Nitrogen 13 mg/dL (7-17); Calcium 9.4 mg/dL (8.4-10.2); Carbon Dioxide 23 mmol/L (22-30); Chloride 108 mmol/L (98-107); Glucose 88 mg/dL (74-99); Non-African American GFR(CKD) 86 (>60 ml/min/1.73 sqM); Potassium 3.8 mmol/L (3.5-5.1); Sodium 137 mmol/L (137-145)
--- NOTE | 2023-09-20 00:54 | XR ---
EXAM: XR Chest, 1 View CLINICAL HISTORY: ITS.REASON XR Reason: reflux TECHNIQUE: Frontal view of the chest. COMPARISON: No relevant prior studies available. FINDINGS: Lungs: Unremarkable. No consolidation. Pleural space: Unremarkable. No pneumothorax. Heart: Unremarkable. No cardiomegaly. Mediastinum: Unremarkable. Normal mediastinal contour. Bones/joints: Unremarkable. No acute fracture. IMPRESSION: No consolidation.
[2023-09-20 01:58] VITALS: BP 130/78; PULSE 86; RESP 18; TEMP 98
== END 2023-09-20 01:58 | disposition home or self-care (01) ==
LOC: EC 21:39
DX: K21.9 Gastro-esophageal reflux disease without esophagitis (principal); Z88.0 Allergy status to penicillin; Z91.040 Latex allergy status; Z88.5 Allergy status to narcotic agent; Z90.49 Acquired absence of other specified parts of digestive tract; Z79.899 Other long term (current) drug therapy
CPT/HCPCS: 36415; 71045; 80048; 84484; 85025; 93005; 99284

== ENCOUNTER 2024-02-15 12:50 | Emergency (ER) | payer OTHER ==
[2024-02-15 14:40] VITALS: RESP 17
[2024-02-15 16:03] LABS: Basophils % (A) 0 %; Eosinophils # (A) 0.1 k/uL (0-0.7); Eosinophils % (A) 1 %; HGB 14.2 gm/dL (11.4-16.0); Lymphocytes # (A) 2.7 k/uL (1.0-4.8); Lymphocytes % (A) 31 %; MCH 29.3 pg (25.0-35.0); MCHC 33.1 g/dL (31.0-37.0); MCV 88.5 fL (80.0-100.0); Mean Platelet Volume 8.4; Monocytes # (A) 0.5 k/uL (0-1.0); Monocytes % (A) 5 %; Neutrophils # (A) 5.4 k/uL (1.3-7.7); Neutrophils % (A) 61 %; Platelet Count 290 k/uL (150-450); RBC 4.85 m/uL (3.80-5.40); RDW 13.2 % (11.5-15.5); WBC 8.8 k/uL (3.8-10.6)
[2024-02-15 16:18] LABS: ALT 21 U/L (4-34); AST 33 U/L (14-36); African American GFR (CKD) >90 (>60 ml/min/1.73 sqM); Albumin 4.7 g/dL (3.5-5.0); Alkaline Phosphatase 72 U/L (38-126); Anion Gap 7 mmol/L; Blood Urea Nitrogen 13 mg/dL (7-17); Calcium 9.3 mg/dL (8.4-10.2); Carbon Dioxide 26 mmol/L (22-30); Chloride 105 mmol/L (98-107); Glucose 94 mg/dL (74-99); Lipase 321 U/L (23-300); Non-African American GFR(CKD) 84 (>60 ml/min/1.73 sqM); Potassium 4.1 mmol/L (3.5-5.1); Sodium 138 mmol/L (137-145); Total Bilirubin 0.4 mg/dL (0.2-1.3); Total Protein 7.7 g/dL (6.3-8.2)
[2024-02-15 16:39] LABS: Appearance,Urine Cloudy (Clear); Bacteria,Urine Moderate /hpf; Bilirubin,Urine Negative (Negative); Blood,Urine Negative (Negative); Color,Urine Colorless; Glucose,Urine (UA) Negative (Negative); Ketones,Urine Negative (Negative); Leukocyte Esterase,Urine Negative (Negative); Nitrite,Urine Negative (Negative); Protein,Urine Negative (Negative); RBC,Urine <1 /hpf (0-5); Specific Gravity,Urine 1.006 (1.001-1.035); Squamous Epithelial Cell,Urine 13 /hpf (0-4); Urobilinogen,Urine <2.0 mg/dL (<2.0); WBC,Urine 3 /hpf (0-5)
--- NOTE | 2024-02-15 17:11 | US ---
EXAMINATION TYPE: US renals and bladder DATE OF EXAM: 02/15/2024 COMPARISON: NONE CLINICAL INDICATION: Female, 48 years old with history of abd pain; abd pain TECHNIQUE: Grayscale imaging of the bilateral kidneys and urinary bladder: FINDINGS: EXAM MEASUREMENTS: Right Kidney: 10.0x4.9x5.3cm Left Kidney: 9.7x4.9x4.9cm Right Kidney: No hydronephrosis or masses seen Left Kidney: No hydronephrosis or masses seen Bladder: wnl There is no evidence for hydronephrosis at this point in time. No nephrolithiasis is seen. No mayank s are identified. The urinary bladder is anechoic. exam limited by bowel and habitus IMPRESSION: No evidence for obstructive uropathy or hydronephrosis. No acute process. [facility], , 02/15/2024 5:09 PM
--- NOTE | 2024-02-15 17:12 | US ---
EXAMINATION TYPE: US transvaginal DATE OF EXAM: 02/15/2024 COMPARISON: 04/27/2023 CLINICAL INDICATION: Female, 48 years old with history of pelvic pain; Lower abd pain TECHNIQUE: Transvaginal (TV). Transabdominal grayscale sonographic images of the pelvis were acquired. Transvaginal sonographic im ages were medically necessary to better assess the following anatomy: Ovaries Doppler imaging: Not performed. FINDINGS: Date of LMP: ablation EXAM MEASUREMENTS: Uterus: 7.0x4.0x4.0cm Endometrial Stripe: 0.2cm Right Ovary: 2.5x1.2x1.0 Left Ovary: 2.4x1.5x0.8 1. Uterus: Retroverted heterogenous nabothian cysts 2. Endometrium: calcifications and heterogenicity secondary to ablation 3. Right Ovary: wnl 4. Left Ovary: wnl 5. Bilateral Adnexa: wnl 6. Posterior cul-de-sac: some free fluid exam limited by bowel IMPRESSION: 1. No evidence for acute process. 2. Endometrium within normal limits for thickness. Post ablation changes noted. [facility], , 02/15/2024 5:10 PM
--- NOTE | 2024-02-15 17:22 | ED ---
Abdominal Pain HPI - General Chief Complaint: Abdominal Pain Stated Complaint: Abd pain Time Seen by Provider: 02/15/24 13:15 Source: patient Mode of arrival: ambulatory Limitations: no limitations - History of Present Illness Initial Comments: 48-year-old female presents emergency department with suprapubic pain. Onset was on Thursday. On Thursday and Thursday she did drink some protein shakes for lunch and was concerned as to whether these may have been causing her symptoms. She denies any urinary complaints to include dysuria, hematuria or difficulty voiding. Denies diarrhea, constipation, black or bloody stools. No fevers. No nausea or vomiting. Patient had an ablation and therefore does not have menstrual cycles. She does admit to a history of fibroids. No other alleviating, precipitating or modifying factors - Related Data Home Medications Medication Instructions Recorded Confirmed Ibuprofen [Motrin Ib] 800 mg PO Q8H PRN 03/31/20 01/07/23 Esomeprazole Magnesium 40 mg PO 0400 09/23/22 01/07/23 polyethylene glycoL 3350 [Miralax] 17 gm PO DAILY PRN 09/23/22 01/09/23 Acetaminophen [Tylenol Extra 500 - 1,000 mg PO Q4-6H PRN 01/07/23 01/09/23 Strength] L.acidoph,Paracasei, B.lactis 1 each PO DAILY 01/07/23 01/09/23 [Probiotic] Multivitamins, Thera [Multivitamin 1 tab PO DAILY 01/07/23 01/07/23 (formulary)] Previous Rx's Medication Instructions Recorded Cyclobenzaprine [Flexeril] 10 mg PO TID PRN #40 tab 01/09/23 Gabapentin 300 mg PO TID #90 cap 01/09/23 HYDROcodone/APAP 10-325MG [[place] 1 tab PO Q4HR PRN 7 Days #42 tab 01/09/23 10-325] Sennosides/Docusate Sodium [Senna 1 each PO BID PRN #20 capsule 01/09/23 Plus 8.6-50 mg Softgel] cefaDROXiL [Duricef] 500 mg PO Q12HR #20 cap 01/09/23 Cephalexin [Keflex] 500 mg PO BID #14 cap 02/15/24 Allergies Allergy/AdvReac Type Severity Reaction Status Date / Time alcohol Allergy Unknown Verified 02/15/24 13:14 codeine Allergy Unknown Verified 02/15/24 13:14 latex Allergy Unknown Verified 02/15/24 13:14 Penicillins Allergy Unknown Verified 02/15/24 13:14 Review of Systems ROS Statement: Those systems with pertinent positive or pertinent negative responses have been documented in the HPI. ROS Other: All systems not noted in ROS Statement are negative. Past Medical History Past Medical History: GERD/Reflux Additional Past Medical History / Comment(s): eczema, constipation History of Any Multi-Drug Resistant Organisms: None Reported Past Surgical History: Cholecystectomy, Hernia Repair, Uterine Ablation Additional Past Surgical History / Comment(s): D&C Past Anesthesia/Blood Transfusion Reactions: Previous Problems w/ Anesthesia Additional Past Anesthesia/Blood Transfusion Reaction / Comment(s): hard to wake up from anesthesia Past Psychological History: No Psychological Hx Reported Smoking Status: Never smoker Past Alcohol Use History: None Reported Past Drug Use History: None Reported - Past Family History Mother Family Medical History: Cancer General Exam Limitations: no limitations General appearance: alert, in no apparent distress Head exam: Present: atraumatic, normocephalic, normal inspection Eye exam: Present: normal appearance, PERRL, EOMI. Absent: scleral icterus, conjunctival injection, periorbital swelling ENT exam: Present: normal exam, mucous membranes moist Neck exam: Present: normal inspection. Absent: tenderness, meningismus, lymphadenopathy Respiratory exam: Present: normal lung sounds bilaterally. Absent: respiratory distress, wheezes, rales, rhonchi, stridor Cardiovascular Exam: Present: regular rate, normal rhythm, normal heart sounds. Absent: systolic murmur, diastolic murmur, rubs, gallop, clicks GI/Abdominal exam: Present: soft, tenderness (Suprapubic), normal bowel sounds. Absent: distended, guarding, rebound, rigid Extremities exam: Present: normal inspection, full ROM, normal capillary refill. Absent: tenderness, pedal edema, joint swelling, calf tenderness Back exam: Present: normal inspection Neurological exam: Present: alert, oriented X3, CN II-XII intact Psychiatric exam: Present: normal affect, normal mood Skin exam: Present: warm, dry, intact, normal color. Absent: rash Course Vital Signs 02/15/24 02/15/24 02/15/24 13:14 14:37 16:13 Temperature 98.3 F 98.3 F 97.9 F Pulse Rate 95 83 76 Respiratory 18 17 17 Rate Blood Pressure 162/87 114/80 103/66 O2 Sat by Pulse 95 99 99 Oximetry 02/15/24 18:37 Temperature 98.6 F Pulse Rate 68 Respiratory 17 Rate Blood Pressure 156/88 O2 Sat by Pulse 98 Oximetry Medical Decision Making - Medical Decision Making Was pt. sent in by a medical professional or institution (, PA, CANCELING AND CUTTING CONTROL CLERK, urgent care, hospital, or fci...) When possible be specific @ -No Did you speak to anyone other than the patient for history (EMS, parent, family, police, friend...)? What history was obtained from this source @ -No Did you review nursing and triage notes (agree or disagree)? Why? @ -I reviewed and agree with nursing and triage notes Were old charts reviewed (outside hosp., previous admission, EMS record, old EKG, old radiological studies, urgent care reports/EKG's, fci records)? Report findings @ -No old charts were reviewed Differential Diagnosis (chest pain, altered mental status, abdominal pain women, abdominal pain men, vaginal bleeding, weakness, fever, dyspnea, syncope, headache, dizziness, GI bleed, back pain, seizure, CVA, palpatations, mental health, musculoskeletal)? @ -Differential Abdominal Pain Women: Appendicitis, Cholecystitis, diverticulosis, ischemic bowel, pancreatitis, hepatitis, UTI, gastroenteritis, AAA, incarcerated hernia, bowel obstruction, constipation, inflammatory bowel, hepatitis, peptic ulcer disease, splenic infarction, perforated viscus, vulvitis, ovarian torsion, PID, kidney stone, placenta abruption, this is not meant to be an all-inclusive list EKG interpreted by me (3pts min.). @ -Not done X-rays interpreted by me (1pt min.). @ -None done CT interpreted by me (1pt min.). @ -None done U/S interpreted by me (1pt. min.). @ -Yes and demonstrates no acute findings What testing was considered but not performed or refused? (CT, X-rays, U/S, labs)? Why? @ -CT was considered however patient's pain is suprapubic and very low into the pelvis What meds were considered but not given or refused? Why? @ -None Did you discuss the management of the patient with other professionals (professionals i.e. , PA, CANCELING AND CUTTING CONTROL CLERK, lab, RT, psych nurse, nursing home social worker, manager terminal, teacher, supply requirements officer, heel caser)? Give summary @ -No Was smoking cessation discussed for >3mins.? @ -No Was critical care preformed (if so, how long)? @ -No Were there social determinants of health that impacted care today? How? (Homelessness, low income, unemployed, alcoholism, drug addiction, transportation, low edu. Level, literacy, decrease access to med. care, fci, rehab)? @ -No Was there de-escalation of care discussed even if they declined (Discuss DNR or withdrawal of care, Hospice)? DNR status @ -No What co-morbidities impacted this encounter? (DM, HTN, Smoking, COPD, CAD, Cancer, CVA, ARF, Chemo, Hep., AIDS, mental health diagnosis, sleep apnea, morbid obesity)? @ -Fibroids Was patient admitted / discharged? Hospital course, mention meds given and route, prescriptions, significant lab abnormalities, going to OR and other pertinent info. @ -Upon arrival patient seen and evaluated in bed 32. Thorough history and physical exam was performed. Laboratory studies were conducted. Patient provides a urine sample. Renal and uterine ultrasound are performed. Patient does have a moderate amount of bacteria in her urine. I did discuss this with the patient. Patient will be treated as a urinary tract infection. She is to take these medications as they are instructed and follow-up with her primary care doctor within 2 to 4 days. She must have a repeat urine sample performed to ensure and clearance of infection after the antibiotics are finished. Return for any new or worsening symptoms. Patient agreeable plan was discharged home in stable condition Undiagnosed new problem with uncertain prognosis? @ -No Drug Therapy requiring intensive monitoring for toxicity (Heparin, Nitro, Insuli n, Cardizem)? @ -No Were any procedures done? @ -No Diagnosis/symptom? @ -Acute suprapubic pain, acute UTI Acute, or Chronic, or Acute on Chronic? @ -Acute Uncomplicated (without systemic symptoms) or Complicated (systemic symptoms)? @ -Complicated Side effects of treatment? @ -No Exacerbation, Progression, or Severe Exacerbation? @ -No Poses a threat to life or bodily function? How? (Chest pain, [place], [place], pneumonia, PE, COPD, DKA, ARF, appy, cholecystitis, CVA, Diverticulitis, Homicidal, Suicidal, threat to staff... and all critical care pts) @ -No - Lab Data Result diagrams: 02/15/24 15:57 02/15/24 15:57 Lab Results 02/15/24 02/15/24 02/15/24 Range/Units 15:57 15:57 15:57 WBC 8.8 (3.8-10.6) k/uL RBC 4.85 (3.80-5.40) m/uL Hgb 14.2 (11.4-16.0) gm/dL Hct 43.0 (34.0-46.0) % MCV 88.5 (80.0-100.0) fL MCH 29.3 (25.0-35.0) pg MCHC 33.1 (31.0-37.0) g/dL RDW 13.2 (11.5-15.5) % Plt Count 290 (150-450) k/uL MPV 8.4 Neutrophils % 61 % Lymphocytes % 31 % Monocytes % 5 % Eosinophils % 1 % Basophils % 0 % Neutrophils # 5.4 (1.3-7.7) k/uL Lymphocytes # 2.7 (1.0-4.8) k/uL Monocytes # 0.5 (0-1.0) k/uL Eosinophils # 0.1 (0-0.7) k/uL Basophils # 0.0 (0-0.2) k/uL Sodium 138 (137-145) mmol/L Potassium 4.1 (3.5-5.1) mmol/L Chloride 105 (98-107) mmol/L Carbon Dioxide 26 (22-30) mmol/L Anion Gap 7 mmol/L BUN 13 (7-17) mg/dL Creatinine 0.83 (0.52-1.04) mg/dL Est GFR (CKD-EPI)AfAm >90 (>60 ml/min/1.73 sqM) Est GFR (CKD-EPI)NonAf 84 (>60 ml/min/1.73 sqM) Glucose 94 (74-99) mg/dL Calcium 9.3 (8.4-10.2) mg/dL Total Bilirubin 0.4 (0.2-1.3) mg/dL AST 33 (14-36) U/L ALT 21 (4-34) U/L Alkaline Phosphatase 72 (38-126) U/L Total Protein 7.7 (6.3-8.2) g/dL Albumin 4.7 (3.5-5.0) g/dL Lipase 321 H (23-300) U/L Urine Color Colorless Urine Appearance Cloudy H (Clear) Urine pH 7.0 (5.0-8.0) Ur Specific Gray 1.006 (1.001-1.035) Urine Protein Negative (Negative) Urine Glucose (UA) Negative (Negative) Urine Ketones Negative (Negative) Urine Blood Negative (Negative) Urine Nitrite Negative (Negative) Urine Bilirubin Negative (Negative) Urine Urobilinogen <2.0 (<2.0) mg/dL Ur Leukocyte Esterase Negative (Negative) Urine RBC <1 (0-5) /hpf Urine WBC 3 (0-5) /hpf Ur Squamous Epith Cells 13 H (0-4) /hpf Urine Bacteria Moderate H (None) /hpf Disposition Clinical Impression: Pelvic pain, UTI (urinary tract infection) Disposition: HOME SELF-CARE Condition: Stable Instructions (If sedation given, give patient instructions): Urinary Tract Infection in Women (ED) Additional Instructions: Please take the antibiotics as they are instructed starting tomorrow. Follow-up with your primary care doctor. They need to repeat a urine sample to ensure that your symptoms have improved and the infection has cleared. If you have continued symptoms they may need to do more of a workup to discover the etiology. Return for any new or worsening symptoms Prescriptions: Cephalexin [Keflex] 500 mg PO BID #14 cap Is patient prescribed a controlled substance at d/c from ED?: No Referrals: Amanda Lindsay MD [Primary Care Provider] - 1-2 days Time of Disposition: 18:19
[2024-02-15] MEDS: cefTRIAXone IN SWFI 1,000 MG/10 ML SYRINGE IVP STA (18:30)
[2024-02-15 18:40] VITALS: BP 156/88; PULSE 68; TEMP 98.6
== END 2024-02-15 18:40 | disposition home or self-care (01) ==
LOC: EC 12:50
DX: N39.0 Urinary tract infection, site not specified (principal); D21.9 Benign neoplasm of connective and other soft tissue, unspecified; Z88.0 Allergy status to penicillin; Z88.5 Allergy status to narcotic agent; Z88.8 Allergy status to other drugs, medicaments and biological substances; Z91.040 Latex allergy status
CPT/HCPCS: 36415; 80053; 83690; 85025; 81001; 76830; 76770; 99284; 96374; J0696

== ENCOUNTER → 2024-04-12 | Outpatient (CLI) | payer OTHER ==
--- NOTE | 2024-04-12 10:39 | US ---
EXAMINATION TYPE: US venous doppler duplex LE RT DATE OF EXAM: 04/12/2024 10:33 AM COMPARISON: US 2022 CLINICAL INDICATION: Female, 48 years old with history of RLE; Right calf pain; No hx of DVT. Patient does not take blood thinners. Pain in right leg x a few weeks. TECHNIQUE: The lower extremity deep venous system is examined utilizing real time linear array sonog efren with graded compression, color doppler sonography, and spectral doppler. SIDE PERFORMED: Right FINDINGS: VESSELS IMAGED: Common Femoral Vein Deep Femoral Vein Greater Saphenous Vein * Femoral Vein Popliteal Vein Small Saphenous Vein * Proximal Calf Veins (* superficial vessels) Right Leg: No evidence of DVT, Color Doppler imaging shows patency of the vessels. IMPRESSION: 1. Right lower extremity ultrasound negative for deep venous thrombosis [facility], , 04/12/2024 10:37 AM
== END | disposition home or self-care (01) ==
LOC: RADUSWWP 09:56
PROVIDERS: ATTEND Family Medicine
DX: M79.661 Pain in right lower leg (principal)

== ENCOUNTER → 2024-08-27 | Outpatient (CLI) | payer OTHER ==
--- NOTE | 2024-08-27 20:24 | MR ---
EXAMINATION TYPE: MR cspine/lspine wo con DATE OF EXAM: 08/27/2024 7:16 PM COMPARISON: Cervical spine radiograph 08/04/2024, lumbar spine radiographs 05/16/2024, 04/13/2023, 023, MRI lumbar spine 06/08/2023, 12/11/2022, CT lumbar spine 12/05/2022, CT brain C-spine 11/27/2021 CLINICAL INDICATION: Female, 49 years old with history of M62.81,M54.2,M54.16 CERVICLE LUMB PAIN, n randy pain that radiates down arms, low back pain that radiates down legs due to being pulled by a dog 2024. history of bone spur removed on lumbar spine. IV Contrast: None TECHNIQUE: Multiplanar, multisequence imaging of the cervical and lumbar spine is performed without I V contrast. FINDINGS: The cervical vertebral bodies have preserved heights. Alignment is within normal limits given patient positioning. Bone signal is within normal limits. The spinal cord is unremarkable with regards to th eir signal intensity and morphology. Minimal multilevel disc desiccation. No significant disc height loss. No abnormal STIR signal. C2-C3: No significant disc pathology. The spinal canal is patent. No neural foraminal stenosis. C3-C4: Broad-based disc bulge with abutment of the anterior spinal cord on the right aspect. No signi ficant mass effect. Results in minimal central canal stenosis. Uncovertebral joint hypertrophy. Mini mal right neural foraminal stenosis. The left neural foramen is patent. C4-C5: Broad-based disc bulge with mild effacement of the anterior thecal sac. No significant central canal stenosis or abutment of the anterior spinal cord. No neural foraminal stenosis. Left-sided du ral ectasia. C5-C6: No significant disc pathology. The spinal canal is patent. No neural foraminal stenosis. C6-C7: Broad-based disc bulge with mild effacement of the anterior thecal sac. No involvement of the anterior spinal cord. No significant central canal stenosis. No neural foraminal stenosis. C7-T1: No significant disc pathology. The spinal canal is patent. No neural foraminal stenosis. Other: Enlarged cystic lesion within the pituitary fossa measuring up to 2.4 cm with T1/T2 hyperinten se fluid fluid level identified (series 401, image 10). The lumbar vertebral bodies do have preserved heights and alignment. Multilevel disc desiccation is present with some disc height loss involving the lower lumbar spine discs. The conus medullaris and the distal spinal cord do appear unremarkable with regards to their signal intensity and morphology. Mild subcutaneous edema within the back. Right-sided laminectomy at L4. T12-L1: No significant disc pathology is identified. The spinal canal and neural foramen are patent L1-L2: No significant disc pathology is identified. The spinal canal and neural foramen are patent. L2-L3: No significant disc pathology is identified. The spinal canal and neural foramen are patent. L3-L4: Minimal disc bulge. Ligamentum flavum buckling. No significant central canal stenosis. Mild bi lateral neural foraminal stenosis. L4-L5: Minimal disc bulge. No significant central canal stenosis. Bilateral facet arthropathy. Mild b ilateral neural foraminal stenosis. L5-S1: The intervertebral disc appears round on its contour posteriorly without significant mass eff ect upon the thecal sac. Bilateral facet arthropathy. Minimal bilateral neural foraminal stenosis. Other findings: Prominent bilateral extrarenal pelvises.. IMPRESSION: 1. No definitive evidence for disc herniation or significant spinal canal stenosis. 2. Mild multilevel disc degeneration of the cervical and lumbar spine as described above. 3. 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 Etiologies include pituitary cystic/necrotic a denoma versus Rathke cleft cyst versus other etiologies. Further workup is recommended with considera tion for MRI pituitary. [facility], , 08/27/2024 8:22 PM
== END | disposition home or self-care (01) ==
LOC: RADMRIMAIN 18:30
PROVIDERS: ATTEND Orthopaedic Surgery
DX: M51.16 Intervertebral disc disorders with radiculopathy, lumbar region (principal); M50.123 Cervical disc disorder at C6-C7 level with radiculopathy
CPT/HCPCS: 72141; 72148

== ENCOUNTER → 2024-09-23 | Outpatient (CLI) | payer OTHER ==
--- NOTE | 2024-09-24 07:50 | CT ---
EXAMINATION TYPE: CT ChestAbdPelvis wo con CT DLP: 755.1 mGycm, Automated exposure control for dose reduction was used. DATE OF EXAM: 09/23/2024 5:23 PM COMPARISON: CT abdomen and pelvis 04/27/2023, 08/11/2021 CLINICAL INDICATION:Female, 49 years old with history of M54.5 LOW BACK PAIN, R20.2 PARESTHESIA M62.8 30 R25.2; PHH, Bilateral leg and hip pain since April 2024. Technique: Multiple axial images of the chest, abdomen, and pelvis were obtained without intravenous or oral contrast. This limits evaluation. Two-dimensional coronal and sagittal reconstructions were o btained. Findings: CHEST: LUNGS/ PLEURA: No pleural effusion, pneumothorax, focal consolidation. Stable 2.6 mm pulmonary nodule along the right minor fissure dating back to 2021 and considered benign. No follow-up recommended. Elevation of the right hemidiaphragm. AIRWAY: Patent and unremarkable.. HEART: Size within normal limits. . No pericardial effusion. No significant coronary artery calcifica tions. MEDIASTINUM: No gross evidence of adenopathy. Residual thymic tissue identified. VASCULATURE: No aortic aneurysm. MUSCULOSKELETAL: No acute osseous abnormalities. Multilevel degenerative disc disease of the mid thor acic spine. SOFT TISSUES/LYMPH NODES: Unremarkable. LOWER NECK: No significant findings. ABDOMEN: ABDOMEN LIVER: Unremarkable noncontrast appearance GALLBLADDER AND BILE DUCTS: The gallbladder is surgically absent. No biliary duct dilatation. PANCREAS: Unremarkable noncontrast appearance SPLEEN: Unremarkable noncontrast appearance ADRENAL GLANDS: Unremarkable noncontrast appearance. KIDNEYS AND URETERS: No evidence of hydronephrosis or renal calculus. Bilateral extrarenal pelvises. PELVIS BLADDER: Underdistended but grossly unremarkable. REPRODUCTIVE: Unremarkable noncontrast appearance ABDOMEN & PELVIS STOMACH AND BOWEL: Postsurgical changes of the GE junction from hernia repair.No focal bowel wall thi ckening or surrounding inflammatory changes. Scattered sigmoid diverticulosis without evidence for ac consuelo diverticulitis. Low position of the cecum within the pelvis. No evidence of bowel obstruction. PERITONEUM: No evidence of pneumoperitoneum or free fluid. VASCULATURE: No evidence of aortic aneurysm. Few pelvic phleboliths. MUSCULOSKELETAL: No acute osseous abnormalities. Mild multilevel degenerative changes of the lower johanny mbar spine. LYMPH NODES: No gross evidence for lymphadenopathy. SOFT TISSUE/ABDOMINAL WALL: Unremarkable IMPRESSION: 1. No acute process within the chest, abdomen or pelvis within limitations of a noncontrast exam. 2. Sigmoid diverticulosis without evidence for acute diverticulitis. [facility], , 09/24/2024 7:47 AM
== END | disposition home or self-care (01) ==
LOC: RADCTMAIN 16:53
PROVIDERS: ATTEND Orthopaedic Surgery
DX: K57.30 Diverticulosis of large intestine without perforation or abscess without bleeding (principal); M54.50 Low back pain, unspecified; R20.2 Paresthesia of skin; R25.2 Cramp and spasm
CPT/HCPCS: 71250; 74176